=== PATIENT | female | born 1985 | race African-American/Black ===

== ENCOUNTER 2023-04-23 14:12 | Emergency (ER) | payer OTHER ==
--- OUTSIDE RECORDS SUMMARY | 2023-04-23 14:17 | XMS REPORT | Continuity of Care Document ---
:1985 Author Organization [facility] t Address [address] [facility] [address] [place] [address] Care Team Providers Name Role Phone Sharpless Primary Care Physician Josafat Dove Attending Clinician JOSAFAT DOVE Attending Clinician Unavailable Makenzie Brandon Attending Clinician MAKENZIE BRANDON Attending Clinician Unavailable Lauren Medeiros Attending Clinician Izzy Aj Attending Clinician Unavailable Mil Duran Attending Clinician DARIO MILLAN Attending Clinician Unavailable UVALDO FILEDS Attending Clinician Unavailable Edie Moffett Attending Clinician Deidra Javed Attending Clinician NE JENNINGS Admitting Clinician Unavailable Payers Payer Name Policy Type Policy Number Effective Date Expiration Date S ource Problems Condition Condition Condition Status Onset Resolution Last Treating Co mments Source Name Details Category Date Date Treatment Clinician Date Diagnosis Active 2023-01-18 Memoria ISSUE ISSUE 01-17 05:55:00 l Active 08:00: Neptali 01/17/[address] [place] [address] Abdominal Abdominal Diagnosis Active 2023-01-20 Memoria pain in pain in 01-17 03:22:50 l 00:00: Herm theron (finding) (finding) 00 Active 01/17/2023 Diagnosis 01/20/2023 [facility] Bleeding Bleeding Diagnosis Active 2023-01-20 Memoria from from 01-17 03:22:50 l female female 00:00: Neptali genital genital 00 tract tract co-occurre co-occurre nt with nt with (disorder) (disorder) Active 01/17/2023 Diagnosis 01/20/2023 [facility] CHEST PAIN CHEST Diagnosis Active 2021-07-07 Memoria PAIN 07-07 16:17:00 l Active 00:00: [place] 07/07/2021 [facility] ABD PAIN ABD PAIN Diagnosis Active 2020-12-21 Memoria Active 12-08 22:00:00 l 12/08/2020 00:00: Alonzo mcdaniels [place] [address] Neptali,[facility] R10.11 - R10.11 - Diagnosis Active 2020-09-23 Memoria RIGHT RIGHT 4-06 13:52:00 l UPPER UPPER 00:01: [place] QUADRANT QUADRANT 00 PAIN R10.2 PAIN R10.2 Active 09/15/2020 [facility] R10.11 - R10.11 - Diagnosis Active 2020-10-19 Memoria RIGHT RIGHT 4-02 15:16:00 l UPPER UPPER 00:01: [place] QUADRANT QUADRANT 00 PAIN N92.0 PAIN N92.0 Active 09/11/2020 [facility] PTSD/ PTSD/ Diagnosis Active 2019-03-01 Mem JESSICA Ho SONY 08-15 19:41:00 l A A 00:00: [place] [phone] 11 Active 08/15/2018 [facility] HEADACHE/C HEADACHE/ Diagnosis Active 2017-062018-03-26 Memoria HEST PAIN CHEST PAIN 0-15 14:22:00 l Active 00:00: [place] 03/26/2018 00 [facility] Right Right Disease Active [facility] quadrant quadrant 00:00: Medica l abdominal abdominal 00 Cent er pain pain SOB, CHEST SOB, Diagnosis Active 2015-062016-04-28 Memoria PAIN CHEST PAIN 1-17 01:36:00 l Active 00:00: [place] 04/28/2016 00 [facility] LEFT KNEE LEFT KNEE Diagnosis Active 2014-10-15 Memoria PAIN PAIN 5-06 14:56:00 l Active 08:00: Neptali 10/15/2014 00 [facility] Unspecifie Unspecifi Problem 2018-10-13 Memoria d asthma, ed asthma, 13:24:50 l uncomplica uncomplica He kacy ga jada 10/13/2018 [facility] Post-traum Post-trau Problem 2018-10-13 Memoria atic matic 13:24:50 l stress stress Neptali disorder, disorder, unspecifie unspecifie d d 10/13/2018 [facility] Posttrauma Posttraum Problem Resolve 2021-07-09 Memoria tic stress atic d 23:49:19 l disorder stress Neptali (disorder) disorder (disorder) Resolved Problem 07/09/2021 [facility], [facility], [facility] LT KNEE LT KNEE Diagnosis Active 2014-12-15 Memoria PAIN PAIN 10:57:00 l Active Alonzo mcdaniels [facility] History of Past Illness Condition Condition Condition Status Onset Resolution Last Treating Co mments Source Name Details Category Date Date Treatment Clinician Date Diagnosis 2023-01-20 2023-01-20 Memoria finding finding 01-17 03:22:50 03:22:50 l (finding) (finding) 20:26: Herm theron 01/17/2023 00 Diagnosis 01/20/2023 [facility] Antepartum Antepartu Diagnosis 2023-01-20 2023-01-20 Memoria hemorrhage m 01-17 03:22:50 03:22:50 l (disorder) hemorrhage 20:26: He kacy (disorder) 00 01/17/2023 Diagnosis 01/20/2023 [facility] Excessive Excessive Problem 2020-09-22 2020-09-22 Memoria and and 09-20 21:07:09 21:07:09 l frequent frequent 17:00: Alonzo mcdaniels menstruati menstruati 00 on with on with regular regular cycle cycle 09/20/2020 09/22/2020 [facility] Abnormal Abnormal Problem 2020-09-22 2020-09-22 Memoria uterine uterine 09-20 21:07:09 21:07:09 l and and 17:00: Proctor vaginal vaginal 00 bleeding, bleeding, unspecifie unspecifie d d 09/20/2020 09/22/2020 [facility] Unspecifie Unspecifi Problem 2020-09-22 2020-09-22 Memoria d ed 09-20 21:07:09 21:07:09 l abdominal abdominal 17:00: Herm theron pain pain 00 09/20/2020 09/22/2020 [facility] Headache Headache Problem 2017-062018-10-13 2018-10-13 Memoria 03/26/2018 015 13:24:50 13:24:50 l 05:00: Alonzo mcdaniels [address] Discharge Discharge Problem 2015-062016-05-01 2016-05-01 Memoria Diagnosis: Diagnosis: 06-28 04:20:58 04:20:58 l Abdominal Abdominal 06:00: Herm theron pain pain 00 04/28/2016 05/01/2016 [facility] Allergies, Adverse Reactions, Alerts Allergy Allergy Status Severity Reaction(s) Onset Inactive Treating Comm ents Source Name Type Date Date Clinician Tramadol Drug [facility] TRAMADOL Allergy [facility] Shellfis Propensi Active [facility] Containi adverse 00:00: Medical ng reaction 00 Center Products s SHELLFIS Allergy Active [facility] CONTAINI 00:00: Medical NG 00 Center PRODUCTS Shellfis Propensi Active [facility] Containi adverse 00:00: Medical ng reaction 00 Center Products s Shellfis DA Active [facility] [place] 00:00: d 00 [facility] Center No Known No Known Active Memori a Medicati Medicati l on on Neptali Michaels s s Family History Family Member Diagnosis Comments Start Date Stop Date Source Natural father Hypertension [facility] Social History Social Habit Start Date Stop Date Quantity Comments Source History SDOH Alcohol [facility] Frequency History SDOH Alcohol [facility] Std Drinks History SDOH Alcohol [facility] Binge Sexual orientation [facility] History of tobacco Cigar Smoker [facility] History of Social 2021-10-08 2021-10-08 [facility] function 00:00:00 00:00:00 Alcohol intake 2017-07-27 2017-07-27 Current [facility] 00:00:00 00:00:00 non-drinker of Medical Ce nter alcohol (finding) Tobacco Comment 2015-03-27 2015-03-27 2 cigarettes/day [facility] 00:00:00 00:00:00 Alcohol Comment 2015-03-27 2015-03-27 weekend [facility] alth 00:00:00 00:00:00 Cigarettes smoked 2015-03-27 2015-03-27 [facility] current (pack per 00:00:00 00:00:00 day) - Reported Sex Ass[birth year] At [birth year] [facility] 00:00:00 00:00:00 [facility] Smoking Status Start Date Stop Date Source Tobacco smoking status [facility] Current some day smoker 2016-08-16 00:00:00 [facility] Medications Ordered Filled Start Stop Current Ordering Indication Dosage Frequency Signature Comments Components Source Medication Medication Date Date Medication? Clinician (SIG) Name Name Famotidine Yes Notes: Memor ia 20 MG Oral 07-07 (Same as: l Tablet 22:09: Pepcid) Neptali [Pepcid] 00 Maalox Yes Notes: Memoria Advanced - (aluminum l Regular 22:08: hydroxide- Herm theron Strength 00 magnesium SUSP hyd-simeth icone 200-200-20 mg/5ml 30 ml ud AUGUSTINE) Lidocaine Yes Notes: Memori a Viscous 2% - (Same as: l mucous 22:08: Xylocaine) Brenda nn membrane 00 solution Saline No Notes: Memoria Flush 0.9% 6-29 (Same as: l 23:07: BD [place] 00 Posiflush) Sodium Yes 1,000 mL, Memori a Chloride 6-29 1000 l 0.9% 23:07: ml/hr, Proctor (Bolus) IV 00 Infuse Over: 1 hr, Route: IV, 1,000, Drug form: INJ, ONCE, Priority: STAT, Dosing Weight 106.818 kg, Start date: 12/08/20 18:07:00 CDT, Stop date: 12/08/20 18:07:00 CDT, 0 Sodium No 1,000 mL, Memori a Chloride 4-11 1000 l 0.9% 01:27: ml/hr, Proctor (Bolus) IV 00 Infuse Over: 1 hr, Route: IV, 1,000, Drug form: INJ, ONCE, Priority: STAT, Dosing Weight 127.273 kg, Start date: 09/19/20 20:27:00 CDT, Stop date: 09/19/20 20:27:00 CDT, 0 ketOROLAC No 4 days Memor ia 30 mg/mL 4-11 l injectable 01:27: MEDICATION H ermann solution 00 WASTE Product Size: 30 mg Product Wasted: _15__ mg Tylenol 2017-06 No Notes: Max Kalen payam 0-15 acetaminop l 18:00: hen 4000 Neptali 00 mg/day (4 gm/day). (Same as: Tylenol Extra Strength) Ibuprofen 2017-06 No Notes: Memori a 0-15 (Same as: l 18:00: Motrin) Neptali 00 "Do Not Crush" Take with food. VORTIOXETIN Yes 10mg Q.5D Take [address] [facility] 3[facility]10 by mouth 2 [facility] HYDROBROMID 19:18: (two) Medic al E 15 times Center (TRINTELLIX daily . ORAL) RANITIDINE Yes 150mg Take [address] [facility] ORAL 3-10 mg by [facility] 19:18: mouth as Medical 15 needed . Center VORTIOXETIN Yes 10mg Q.5D Take [address] [facility] 3-10 by mouth 2 [facility] HYDROBROMID 19:18: (two) Medic al E 15 times Center (TRINTELLIX daily . ORAL) RANITIDINE 2017-0 Yes 150mg Take [address] [facility] ORAL 3-10 mg by [facility] 19:18: mouth as Medical 15 needed . [place] VORTIOXETIN 2017-0 Yes 10mg Q.5D Take [address] [facility] 3-10 by mouth 2 [facility] HYDROBROMID 19:18: (two) Medic al E 15 times Center (TRINTELLIX daily . ORAL) RANITIDINE 2017-0 Yes 150mg Take [address] [facility]CL ORAL 3-10 mg by [facility] 19:18: mouth as Medical 15 needed . [place] Acetaminoph 2015-06 No 650 mg, Mem oria en 17 Route: PO, l 11:51: Drug form: Proctor 00 TAB, ONCE, Dosing Weight 125, kg, Priority: STAT, Start date: 04/28/16 5:51:00 FLORAL CLERK, Stop date: 04/28/16 5:51:00 FLORAL CLERK Acetaminoph 2015-06 Yes 1 tab, PO, Memoria en 300 MG / 17 Q6H, PRN l Codeine 11:26: Pain, X 3 Brenda nn Phosphate 00 day, # 12 30 MG Oral tab, 0 Tablet Refill(s) [Tylenol with Codeine #3] omeprazole 2015-06 Yes 20 mg = 1 Me moria 20 mg oral 17 cap, PO, l delayed 11:25: Daily, # Alonzo n release 00 30 cap, 0 capsule Refill(s) Sodium 2015-06 No 1,000 mL, Memori a Chloride 17 2,000 l 0.154 09:55: ml/hr, Neptali MEQ/ML 00 Infuse Injectable Over: 30 Solution minutes, Route: IV, 1,000, Drug form: INJ, ONCE, Priority: STAT, Dosing Weight 125 kg, Start date: 04/28/16 3:55:00 FLORAL CLERK, Duration: 1 doses or times, Stop date: 04/28/16 3:55:00 FLORAL CLERK Ketorolac 2015-06 No 4 days Memor ia 17 l 09:06: MEDICATION [place] 00 WASTE Product Size: 30 mg Product Wasted: ___ mg GI cocktail 2015-06 No Notes: Kalen payam -17 G.I. l 07:26: Cocktail = Neptali 00 antacid with simethicon e 22.5 mL - lidocaine viscous 7.5 mL Famotidine 2015-06 No Notes: Memor ia 06-28 (Same as: l 07:26: Pepcid) Can be dilute in 5-10cc NS IVP: Slow IV push over at least 2 minutes. Saline 2015-06 No Notes: Memoria Flush 0.9% 06-28 Same as: l 07:26: BD [place] 00 Posiflush Sterile Ondansetron 2015-06 No Notes: Kalen payam -17 (Same as: l 07:26: Zofran) MEDICATION WASTE Product Size: 4 mg Product Wasted: ___ mg sertraline Yes ESTEBAN 100mg QD Take 1 Carlos is (ZOLOFT) 6-27 (generalize tablet by Health 100 mg 00:00: d anxiety mouth tablet 00 disorder) daily. sertraline Yes ESTEBAN 100mg QD Take 1 Carlos is (ZOLOFT) 6-27 (generalize tablet by Health 100 mg 00:00: d anxiety mouth tablet 00 disorder) daily. sertraline Yes ESTEBAN 100mg QD Take 1 Carlos is (ZOLOFT) 6-27 (generalize tablet by Health 100 mg 00:00: d anxiety mouth tablet 00 disorder) daily. clonazePAM Yes ESTEBAN .5mg Take 1 Harri s (KLONOPIN) 4-07 (generalize tablet by Health 0.5 mg 00:00: d anxiety mouth 2 tablet 00 disorder) times daily as needed for Anxiety. zolpidem Yes ESTEBAN 5mg Take 1 [facility] (AMBIEN) 5 4-07 (generalize tablet by Health mg Tab 00:00: d anxiety mouth at 00 disorder) bedtime nightly. clonazePAM Yes ESTEBAN .5mg Take 1 Harri s (KLONOPIN) 4-07 (generalize tablet by Health 0.5 mg 00:00: d anxiety mouth 2 tablet 00 disorder) times daily as needed for Anxiety. zolpidem 0 Yes ESTEBAN 5mg Take 1 [facility] (AMBIEN) 5 4-07 (generalize tablet by Health mg Tab 00:00: d anxiety mouth at 00 disorder) bedtime nightly. clonazePAM 2016- Yes ESTEBAN .5mg Take 1 Harri s (KLONOPIN) 4-07 (generalize tablet by [facility] 0.5 mg 00:00: d anxiety mouth 2 tablet 00 disorder) times daily as needed for Anxiety. zolpidem 2016 Yes ESTEBAN 5mg Take 1 [facility] (AMBIEN) 5 4-07 (generalize tablet by [facility] mg Tab 00:00: d anxiety mouth at 00 disorder) bedtime nightly. traZODone Yes Medication 50mg Take 1 [facility] (DESYREL) 3-24 refill tablet by [facility] 50 mg 00:00: mouth at tablet 00 bedtime nightly. loratadine Yes Seasonal 10mg QD Take 1 H arris (CLARITIN) 3-24 allergies tablet by [facility] 10 mg 00:00: mouth tablet 00 daily. fluticasone Yes Seasonal 1{spray QD Use 1 [facility] (FLONASE) 3-24 allergies } [place] [facility] 00:00: each mcg/actuati 00 nostril on nasal daily. spray traZODone Yes Medication 50mg Take 1 [facility] (DESYREL) 3-24 refill tablet by [facility] 50 mg 00:00: mouth at tablet 00 bedtime nightly. loratadine Yes Seasonal 10mg QD Take 1 H arris (CLARITIN) 3-24 allergies tablet by [facility] 10 mg 00:00: mouth tablet 00 daily. fluticasone Yes Seasonal 1{spray QD Use 1 [facility] (FLONASE) 3-24 allergies } [place] [facility] 50 00:00: each mcg/actuati 00 nostril on nasal daily. spray traZODone Yes Medication 50mg Take 1 [facility] (DESYREL) 3-24 refill tablet by [facility] 50 mg 00:00: mouth at tablet 00 bedtime nightly. loratadine Yes Seasonal 10mg QD Take 1 H arris (CLARITIN) 3-24 allergies tablet by [facility] 10 mg 00:00: mouth tablet 00 daily. fluticasone Yes Seasonal 1{spray QD Use 1 [facility] (FLONASE) 3-24 allergies } [place] [facility] 50 00:00: each mcg/actuati 00 nostril on nasal daily. spray sertraline 2014-06 Yes ESTEBAN Take 1 Harri s (ZOLOFT) 25 1-23 (generalize tablet by Health mg tablet 00:00: d anxiety mouth 00 disorder) every morning for 1st week and then 2 tablets every morning sertraline 2014-06 Yes ESTEBAN Take 1 Harri s (ZOLOFT) 25 1-23 (generalize tablet by Health mg tablet 00:00: d anxiety mouth 00 disorder) every morning for 1st week and then 2 tablets every morning sertraline 2014-06 Yes ESTEBAN Take 1 Harri s (ZOLOFT) 25 1-23 (generalize tablet by Health mg tablet 00:00: d anxiety mouth 00 disorder) every morning for 1st week and then 2 tablets every morning sertraline 2014-06 Yes ESTEBAN Take 1 Harri s (ZOLOFT) 25 1-23 (generalize tablet by Health mg tablet 00:00: d anxiety mouth 00 disorder) every morning for 1st week and then 2 tablets every morning sertraline 2014-06 Yes ESTEBAN Take 1 Harri s (ZOLOFT) 25 1-23 (generalize tablet by Health mg tablet 00:00: d anxiety mouth 00 disorder) every morning for 1st week and then 2 tablets every morning sertraline 2014-06 Yes ESTEBAN Take 1 Harri s (ZOLOFT) 25 1-23 (generalize tablet by Health mg tablet 00:00: d anxiety mouth 00 disorder) every morning for 1st week and then 2 tablets every morning Yes 1 tab, PO, Mem oria Multivitami 6-21 Daily, 100 l ns with 18:22: Neptali montanez Folic Acid 09 Substituti 0.4 mg oral on tablet Allowed, Kavin e, TAB Vital Signs Vital Name Observation Time Observation Value Comments Source Systolic (mm Hg) 2023-01-17 20:49:00 Kalen Gunderson Diastolic (mm Hg) 2023-01-17 20:49:00 Mem emeraldal Neptali Heart Rate 2023-01-17 20:49:00 [facility] Temperature Oral (F) 2023-01-17 20:49:00 98.7 F [facility] Height 2023-01-17 17:09:00 5 [ft_i] [facility] BMI Calculated 2023-01-17 17:09:00 Anton al Neptali Weight 2023-01-17 17:09:00 [facility] Neptali Height 2021-07-07 20:29:00 180.34 cm [facility] Neptali BMI Calculated 2021-07-07 20:29:00 Memori al Neptali Weight 2021-07-07 20:29:00 Memorial Neptali Systolic (mm Hg) 2021-07-07 20:29:00 Kalen rial Neptali Diastolic (mm Hg) 2021-07-07 20:29:00 Mem orial [place] Heart Rate 2021-07-07 20:29:00 [facility] Neptali Respitory Rate 2021-07-07 20:29:00 Memori al [place] Temperature Oral (F) 2021-07-07 20:29:00 98.2 F [facility] Neptali Height 2020-12-08 22:50:00 180.34 cm [facility] Neptali BMI Calculated 2020-12-08 22:50:00 Memori al Neptali Weight 2020-12-08 22:50:00 Memorial Neptali Systolic (mm Hg) 2020-12-08 22:50:00 Kalen rial Neptali Diastolic (mm Hg) 2020-12-08 22:50:00 Mem orial Neptali Heart Rate 2020-12-08 22:50:00 Memorial Neptali Respitory Rate 2020-12-08 22:50:00 Memori al [place] Temperature Oral (F) 2020-12-08 22:50:00 98.9 F [facility] [place] Temperature Oral (F) 2020-09-20 08:05:00 97.9 F [facility] Neptali Heart Rate 2020-09-20 08:05:00 [facility] [place] Respitory Rate 2020-09-20 08:05:00 Memori al Neptali Systolic (mm Hg) 2020-09-20 08:05:00 Kalen rial Neptali Diastolic (mm Hg) 2020-09-20 08:05:00 Mem orial [place] Height 2020-09-20 01:26:00 180.34 cm Memorial Neptali BMI Calculated 2020-09-20 01:26:00 Memori al Neptali Weight 2020-09-20 01:26:00 Memorial Neptali Systolic (mm Hg) 2020-09-20 01:26:00 Kalen rial Neptali Diastolic (mm Hg) 2020-09-20 01:26:00 Mem orial Neptali Heart Rate 2020-09-20 01:26:00 [facility] [place] Respitory Rate 2020-09-20 01:26:00 Memori al [place] Temperature Oral (F) 2018-03-26 20:00:00 98.6 F [facility] Neptali Heart Rate 2018-03-26 20:00:00 [facility] Neptali Respitory Rate 2018-03-26 20:00:00 Memori al Neptali Systolic (mm Hg) 2018-03-26 20:00:00 Kalen rial Neptali Diastolic (mm Hg) 2018-03-26 20:00:00 Mem orial Neptali BMI Calculated 2018-03-26 17:04:00 Memori al Neptali Weight 2018-03-26 17:04:00 Memorial Neptali Height 2018-03-26 17:04:00 180.34 cm [facility] [place] Temperature Oral (F) 2018-03-26 17:04:00 98.8 F [facility] [place] Heart Rate 2018-03-26 17:04:00 Memorial Neptali Systolic (mm Hg) 2018-03-26 17:04:00 Kalen rial [place] Diastolic (mm Hg) 2018-03-26 17:04:00 Mem orial [place] Respitory Rate 2018-03-26 17:04:00 Memori al [place] Systolic (mm Hg) 2016-04-28 11:47:00 Kalen rial [place] Diastolic (mm Hg) 2016-04-28 11:47:00 Mem orial Neptali Heart Rate 2016-04-28 11:47:00 [facility] [place] Respitory Rate 2016-04-28 11:47:00 Memori al Neptali Temperature Oral (F) 2016-04-28 11:47:00 98.0 F [facility] Neptali Systolic (mm Hg) 2016-04-28 10:17:00 Kalen rial [place] Diastolic (mm Hg) 2016-04-28 10:17:00 Mem orial Neptali Heart Rate 2016-04-28 10:17:00 [facility] [place] Respitory Rate 2016-04-28 10:17:00 Memori al Neptali Heart Rate 2016-04-28 08:00:00 Memorial Neptali Temperature Oral (F) 2016-04-28 08:00:00 97.9 F [facility] [place] Weight 2016-04-28 06:38:00 [facility] [place] Height 2016-04-28 06:38:00 180.34 cm [facility] Neptali BMI Calculated 2016-04-28 06:38:00 Memori al Neptali Respitory Rate 2016-04-28 06:38:00 Memori al [place] Temperature Oral (F) 2016-04-28 06:38:00 98 F [facility] [place] Systolic (mm Hg) 2016-04-28 06:38:00 Kalen rial [place] Diastolic (mm Hg) 2016-04-28 06:38:00 Mem orial [place] Procedures This patient has no known procedures. Plan of Care Planned Activity Planned Date Details Comments Source Future Scheduled Test 2023-02-10 00:00:00 IMM Influenza [facility] Seasonal (>/= 19 yrs) [code = IMM Influenza Seasonal (>/= 19 yrs)] Future Scheduled Test 2022-03-12 00:00:00 IMM Influenza [facility] Seasonal (>/= 19 yrs) [code = IMM Influenza Seasonal (>/= 19 yrs)] Future Scheduled Test 2022-03-12 00:00:00 IMM Influenza [facility] Seasonal (>/= 19 yrs) [code = IMM Influenza Seasonal (>/= 19 yrs)] Future Scheduled Test 2019-08-11 00:00:00 Screening for [facility] malignant neoplasm of cervix (procedure) [code = 564897870] Future Scheduled Test 2019-08-11 00:00:00 Screening for [facility] malignant neoplasm of cervix (procedure) [code = 348285060] Future Scheduled Test 2019-08-11 00:00:00 Screening for [facility] malignant neoplasm of cervix (procedure) [code = 253818401] Future Scheduled Test 2013 00:00:00 Screening for [facility] malignant neoplasm of cervix (procedure) [code = 713240367] Future Scheduled Test 2013 00:00:00 Screening for [facility] malignant neoplasm of cervix (procedure) [code = 239193103] Future Scheduled Test 2013 00:00:00 Screening for [facility] malignant neoplasm of cervix (procedure) [code = 853570275] Future Scheduled Test 1983 00:00:00 COVID-19 Vaccine (#1) [facility] [code = COVID-19 Vaccine (#1)] Future Scheduled Test 1983 00:00:00 COVID-19 Vaccine (#1) [facility] [code = COVID-19 Vaccine (#1)] Future Scheduled Test 1983 00:00:00 COVID-19 Vaccine (#1) [facility] [code = COVID-19 Vaccine (#1)] Future Scheduled Test 1983 00:00:00 Fluoride Varnish [facility] [code = Fluoride Varnish] Future Scheduled Test 1983 00:00:00 Fluoride Varnish [facility] [code = Fluoride Varnish] Encounters Start End Encounter Admission Attending Care Care Encounter Source Date/Time Date/Time Type Type Clinicians Facility Department ID 2023-01-17 2023-01-[address] [facility] [id number] Memoria 17:01:43 20:50:[address] [place] [address] 2023-01-17 2023-01-17 Outpatient LUZ MARIA Dove [facility] [id number] 12:01:43 15:50:00 Mac 2023-01-17 2023-01-17 Emergency E DERRELL JARED [facility] [id number] [facility] 12:01:00 15:50:00 SABHALEY 2021-07-07 2021-07-07 Emergency [facility] [id number] Memoria 20:24:37 22:48:00 akil Gunderson 05 [facility] 2021-07-07 2021-07-07 Outpatient ANGELICA Brandon [facility] [id number] 14:24:37 16:48:00 Makenzie Suazo 2021-07-07 2021-07-[address] [facility] [id number] [place] 14:24:00 16:48:00 MAKENZIE 2020-12-08 2020-12-09 Emergency [facility] [id number] Memoria 22:48:53 07:17:00 r Neptali The 04 [facility] 2020-12-08 2020-12-09 Outpatient DEBORAH Medeiros [facility] [id number] 17:48:53 02:17:00 Lauren Odonnell 2020-09-23 2020-09-23 Outpatient PRIV PRIV [id number] [facility] 04:59:00 04:59:00 [id number] Medica l 2020-09-20 2020-09-20 Emergency nullFlavo [facility] [id number] Memoria 01:12:18 07:30:00 r Neptali 03 l [facility] 2020-09-19 2020-09-20 Outpatient Derrell, MHPL PL [id number] 20:12:18 02:30:00 Sabhaley 03 2020-09-16 2020-09-17 Outpt Diag nullFlavo [facility] [id number] Memoria 21:50:00 04:59:00 Services r [facility] 03 l [facility] 2020-09-16 2020-09-16 Outpatient Duenes, MH31 [id number] 16:50:00 23:59:00 Izzy Louise 2018-03-26 2018-03-26 Emergency nullFlavo [facility] [id number] Memoria 17:01:00 20:35:00 r Neptali 01 [facility] 2018-03-26 2018-03-26 Outpatient Mil Duran [facility] [id number] 12:01:00 15:35:00 T 2016-04-28 2016-04-28 Emergency nullFlavo [facility] [id number] Memoria 06:25:00 11:57:00 r [place] 00 [facility] 2016-04-28 2016-04-28 Outpatient Betina, MHGHR [facility] [id number] 00:25:00 05:57:00 Edie Li 2014-12-15 2015-01-14 OP Therapy nullFlavo [facility] [id number] Memoria 15:55:00 04:59:00 Patients [facility] 2014-12-15 2015-01-13 Outpatient Bedgood, [id number] 10:55:00 23:59:00 Deidra [id number] 2014-10-15 2014-11-14 OP Therapy nullFlavo [facility] [id number] Memoria 19:00:00 04:59:00 Patients [facility] 2014-10-15 2014-11-13 Outpatient [place], [id number]. [id number]. [id number] 14:00:00 23:59:00 De[place] [id number]. [id number] 5.0.101 01 Results Test Description Test Time Test Comments Results Result Comments Source RADRPT 2023-01-17 19:25:39 Test Item Value Reference Range Interpretation Comme nts RADRPT (test code = RADRPT) PROCEDURE INFORMATION: Exam: US [place]reg[place] cy First Trimester, Transabdominal and US , Transvaginal Exam date and time: 01/17/2023 1:02 PM Age: 37 years old Clinical indication: Antepartum complications; Bleeding; Additional info: Vaginal bleeding/abdominal pain and vaginal bleeding TECHNIQUE: Imaging protocol: Real-time transabdominal obstetrical ultrasound of the maternal pelvis and a first trimester , less than 14 weeks 0 days, with image documentation. Transvaginal imaging was used for better evaluation of the fetus, adnexa, and/or cervix. COMPARISON: PELVIS TRANSVAGINAL US 09/16/2020 5:01 PM Findings: GESTATION: Gestation: Intrauterine gestational sac endometrial segment. The the pole is seen . Embryonic/ heart rate: 85 BPM. Extra-embryonic membranes/Placenta: No subchorionic bleed. Amniotic fluid: Amniotic and extra-amniotic fluid are normal for gestational age. BIOMETRY: Gestational age (AUA): Estimated gestational age is 5 weeks and 5 days, by CRL measurments. MATERNAL: FINDINGS: Uterus: Anteverted. The uterus measures 8.1 x 4.5 x 5 6 cm. Right ovary/adnexa: Not seen and likely obscured by bowel gas. Left ovary/adnexa: Measures 3.3 x 1.5 x 2.0 cm. Normal ovarian blood flow. No mass. Intraperitoneal space: There is trace fluid in the cul-de-sac, likely physiologic. Urinary bladder: Unremarkble. Notes: If there is further concern recommend serial hCG and short interval followup, IMPRESSION: 1. Single live intrauterine at the lower uterine segment. 2. EGA is 5 weeks and 5 days. Nitza Soares MD On 01/17/2023 14:24:09; [id number] [facility]VcqcahaUYDYRCEQSZ6157-25-82 17:17:00 Test Item Value Reference Range Interpretation Comments Basophils # (test code = Basophils #) 0.1 <=0.2 [facility]IbotjfvWTADECEDWG8644-32-16 17:17:00 Test Item Value Reference Range Interpretation Comments Microcyte (test code = 1+ *ABN*(01/17/23 Microcyte) 12:17 PM) [facility] [id number] 17:17:00 Test Item Value Reference Range Interpretation Comments ABO/Rh (test code = ABO/Rh) A POS [facility]ElhhzxlROUVJIQIE3640-09-38 17:17:00 Test Item Value Reference Range Interpretation Comments Glucose Lvl (test code = Glucose Lvl) 100 70-99 [facility] HospitalBxwhemqPSVZCNQRV9100-98-03 17:17:00 Test Item Value Reference Range Interpretation Comments BUN (test code = BUN) 6 7-22 [facility] HospitalMrkzztkIKTURCOOZ1568-68-95 17:17:00 Test Item Value Reference Range Interpretation Comments Creatinine Lvl (test code = Creatinine 0.84 0.50-1.40 Lvl) [facility] HospitalBrukqscPQHDSVJXR4987-22-23 17:17:00 Test Item Value Reference Range Interpretation Comments Sodium Lvl (test code = Sodium Lvl) 136 135-145 [facility] HospitalOqaplprICBYPOFSJ3607-67-06 17:17:00 Test Item Value Reference Range Interpretation Comments Potassium Lvl (test code = Potassium 4.3 3.5-5.1 Lvl) [facility] HospitalLoqqktbDQLEECIAF3862-98-11 17:17:00 Test Item Value Reference Range Interpretation Comments Chloride Lvl (test code = Chloride Lvl) 112 95-109 [facility] HospitalSkltoifFSXTDIZFH3327-28-27 17:17:00 Test Item Value Reference Range Interpretation Comments CO2 (test code = CO2) 24 24-32 [facility] HospitalKoftvbjCLVLFNLIC8706-30-26 17:17:00 Test Item Value Reference Range Interpretation Comments Calcium Lvl (test code = Calcium Lvl) 9.2 8.5-10.5 [facility] HospitalUfguyjpDLHRCAORL4582-92-64 17:17:00 Test Item Value Reference Range Interpretation Comments Total Protein (test code = Total 8.0 6.4-8.4 Protein) [facility] HospitalUzvpiofITRPYTHQG8668-71-26 17:17:00 Test Item Value Reference Range Interpretation Comments Albumin Lvl (test code = Albumin Lvl) 3.9 3.5-5.0 [facility] HospitalSbuakjdMQSDYRLFK1538-92-98 17:17:00 Test Item Value Reference Range Interpretation Comments ALT (test code = ALT) 18 <=65 [facility] HospitalBkmixujDOOABQPJY3633-41-37 17:17:00 Test Item Value Reference Range Interpretation Comments AST (test code = AST) 10 <=37 [facility] HospitalYselidwYIWFICNYO0433-59-39 17:17:00 Test Item Value Reference Range Interpretation Comments Alk Phos (test code = Alk Phos) 57 39-136 [facility] HospitalXsaqkgtNQWXUPVLD9271-62-25 17:17:00 Test Item Value Reference Range Interpretation Comments Bili Total (test code = Bili Total) 0.6 0.2-1.3 [facility] HospitalQrzjqvjCTTNMXKUZ7548-83-70 17:17:00 Test Item Value Reference Range Interpretation Comments AGAP (test code = AGAP) 4.3 10.0-20.0 [facility] HospitalYwbkhyiHKFSGKDDU7752-71-02 17:17:00 Test Item Value Reference Range Interpretation Comments B/C Ratio (test code = B/C Ratio) 7 1 6-25 [facility] HospitalJewbdrgALGBDILRD5583-93-52 17:17:00 Test Item Value Reference Range Interpretation Comments Globulin (test code = Globulin) 4.1 2.7-4.2 [facility] HospitalBlzgpnqNPYJRVRQE2148-94-76 17:17:00 Test Item Value Reference Range Interpretation Comments A/G Ratio (test code = A/G Ratio) 1.0 1 0.7-1.6 [facility] HospitalMohavkcCRDPJLEJY3293-93-02 17:17:00 Test Item Value Reference Range Interpretation Comments eGFR (test code = eGFR) 90 [facility] HospitalNteowswCNJOYNDQQ4490-62-37 17:17:00 Test Item Value Reference Range Interpretation Comments hCG Tot (test code = hCG Tot) 956 [facility] HospitalHhdtasaUWVXRYKFOT8698-36-29 17:17:00 Test Item Value Reference Range Interpretation Comments WBC (test code = WBC) 6.6 3.7-10.4 [facility] HospitalIpjyhldKDLHMVEGKC6970-83-05 17:17:00 Test Item Value Reference Range Interpretation Comments RBC (test code = RBC) 4.59 4.20-5.40 [facility] HospitalTkvnrlrKEYBZJRGPJ4579-08-48 17:17:00 Test Item Value Reference Range Interpretation Comments Hgb (test code = Hgb) 10.4 12.0-16.0 [place] [address]-08-08 17:17:00 Test Item Value Reference Range Interpretation Comments Hct (test code = Hct) 34.4 36.0-48.0 [facility] HospitalIpcpygrDZJVFGVSFI8758-66-66 17:17:00 Test Item Value Reference Range Interpretation Comments MCV (test code = MCV) 74.8 80.0-98.0 [place] 898863-08-08 17:17:00 Test Item Value Reference Range Interpretation Comments MCH (test code = MCH) 22.7 pg 27.0-31.0 [place] 898863-08-08 17:17:00 Test Item Value Reference Range Interpretation Comments MCHC (test code = MCHC) 30.3 32.0-36.0 [facility] HospitalKgsbwqhOPQIGEFOAX7813-20-65 17:17:00 Test Item Value Reference Range Interpretation Comments RDW (test code = RDW) 19.6 11.5-14.5 [place] 898863-08-08 17:17:00 Test Item Value Reference Range Interpretation Comments Platelet (test code = Platelet) 275 133-450 [facility] HospitalFywmrsnCBMTGGIBAX5255-22-03 17:17:00 Test Item Value Reference Range Interpretation Comments MPV (test code = MPV) 7.4 7.4-10.4 [facility] HospitalEeilybuTXFJZXFLNJ0816-46-94 17:17:00 Test Item Value Reference Range Interpretation Comments Segs (test code = Segs) 72.5 45.0-75.0 [facility] HospitalBpezqxdKFVPVNKEUN0376-74-95 17:17:00 Test Item Value Reference Range Interpretation Comments Lymphocytes (test code = Lymphocytes) 18.9 20.0-40.0 [place] 898863-08-08 17:17:00 Test Item Value Reference Range Interpretation Comments Monocytes (test code = Monocytes) 6.6 2.0-12.0 [place] [address]-08-08 17:17:00 Test Item Value Reference Range Interpretation Comments Eosinophils (test code = Eosinophils) 1.1 <=4.0 [place] [address]-08-08 17:17:00 Test Item Value Reference Range Interpretation Comments Basophils (test code = Basophils) 0.9 <=1.0 [place] [address]-08-08 17:17:00 Test Item Value Reference Range Interpretation Comments Neutrophils # (test code = Neutrophils 4.8 1.5-8.1 #) [facility] ClareUfclhmrVVCOSOQDEC8232-81-13 17:17:00 Test Item Value Reference Range Interpretation Comments Lymphocytes # (test code = Lymphocytes 1.2 1.0-5.5 #) [facility] ClareHenlplmLDYTLVJNMJ5499-73-49 17:17:00 Test Item Value Reference Range Interpretation Comments Monocytes # (test code = Monocytes #) 0.4 <=0.8 [place] 898863-08-08 17:17:00 Test Item Value Reference Range Interpretation Comments Eosinophils # (test code = Eosinophils 0.1 <=0.5 #) [facility]USOGRQ4186-70-[facility] 20:56:00 Test Item Value Reference Range Interpretation Comments HS Troponin I Baseline (test code = HS no gt Troponin I Baseline) [facility]2022-01-26 20:56:00 Test Item Value Reference Range Interpretation Comments Glucose Lvl (test code = Glucose Lvl) 107 70-99 [facility]2022-01-26 20:56:00 Test Item Value Reference Range Interpretation Comments BUN (test code = BUN) 9 7-22 [facility]2022-01-26 20:56:00 Test Item Value Reference Range Interpretation Comments Creatinine Lvl (test code = Creatinine 0.80 0.50-1.40 Lvl) [facility]2022-01-26 20:56:00 Test Item Value Reference Range Interpretation Comments Sodium Lvl (test code = Sodium Lvl) 141 135-145 [facility]2022-01-26 20:56:00 Test Item Value Reference Range Interpretation Comments Potassium Lvl (test code = Potassium 3.8 3.5-5.1 Lvl) [facility]2022-01-26 20:56:00 Test Item Value Reference Range Interpretation Comments Chloride Lvl (test code = Chloride Lvl) 112 95-109 [facility]2022-01-26 20:56:00 Test Item Value Reference Range Interpretation Comments CO2 (test code = CO2) 25 24-32 [facility]2022-01-26 20:56:00 Test Item Value Reference Range Interpretation Comments Calcium Lvl (test code = Calcium Lvl) 9.4 8.5-10.5 [place] 468472-01-26 20:56:00 Test Item Value Reference Range Interpretation Comments Total Protein (test code = Total 8.1 6.4-8.4 Protein) [place] 468472-01-26 20:56:00 Test Item Value Reference Range Interpretation Comments Albumin Lvl (test code = Albumin Lvl) 3.9 3.5-5.0 [place] 468472-01-26 20:56:00 Test Item Value Reference Range Interpretation Comments ALT (test code = ALT) 16 <=65 [place] 468472-01-26 20:56:00 Test Item Value Reference Range Interpretation Comments AST (test code = AST) 10 <=37 [place] 468472-01-26 20:56:00 Test Item Value Reference Range Interpretation Comments Alk Phos (test code = Alk Phos) 61 39-136 [place] 468472-01-26 20:56:00 Test Item Value Reference Range Interpretation Comments Bili Total (test code = Bili Total) 0.4 0.2-1.3 [place] 468472-01-26 20:56:00 Test Item Value Reference Range Interpretation Comments AGAP (test code = AGAP) 7.8 10.0-20.0 [place] 468472-01-26 20:56:00 Test Item Value Reference Range Interpretation Comments B/C Ratio (test code = B/C Ratio) 11 1 6-25 [place] 468472-01-26 20:56:00 Test Item Value Reference Range Interpretation Comments Globulin (test code = Globulin) 4.2 2.7-4.2 [place] 468472-01-26 20:56:00 Test Item Value Reference Range Interpretation Comments A/G Ratio (test code = A/G Ratio) 0.9 1 0.7-1.6 [place] 468472-01-26 20:56:00 Test Item Value Reference Range Interpretation Comments eGFR (test code = eGFR) 95 [place] 468472-01-26 20:56:00 Test Item Value Reference Range Interpretation Comments Lipase Lvl (test code = Lipase Lvl) 64 73-393 [facility] HospitalWkkojeyGUUIKXJMKEFAF4762-18-05 20:56:00 Test Item Value Reference Range Interpretation Comments S Preg (test code = S Negative *NA*(07/07/21 Preg) 2:56 PM) [place] 898862-01-26 20:56:00 Test Item Value Reference Range Interpretation Comments WBC (test code = WBC) 3.9 3.7-10.4 [place] 898862-01-26 20:56:00 Test Item Value Reference Range Interpretation Comments RBC (test code = RBC) 4.37 4.20-5.40 [place] 898862-01-26 20:56:00 Test Item Value Reference Range Interpretation Comments Hgb (test code = Hgb) 10.4 12.0-16.0 [place] 898862-01-26 20:56:00 Test Item Value Reference Range Interpretation Comments Hct (test code = Hct) 32.8 36.0-48.0 [place] 898862-01-26 20:56:00 Test Item Value Reference Range Interpretation Comments MCV (test code = MCV) 75.1 80.0-98.0 [place] 898862-01-26 20:56:00 Test Item Value Reference Range Interpretation Comments MCH (test code = MCH) 23.7 pg 27.0-31.0 [facility] HospitalCrmnfibTCUNNJOIJO1608-55-46 20:56:00 Test Item Value Reference Range Interpretation Comments MCHC (test code = MCHC) 31.5 32.0-36.0 [place] 898862-01-26 20:56:00 Test Item Value Reference Range Interpretation Comments RDW (test code = RDW) 16.2 11.5-14.5 [place] 898862-01-26 20:56:00 Test Item Value Reference Range Interpretation Comments Platelet (test code = Platelet) 251 133-450 [facility] HospitalYhexumgLFKTDEFZFG3174-01-17 20:56:00 Test Item Value Reference Range Interpretation Comments MPV (test code = MPV) 8.6 7.4-10.4 [place] 898862-01-26 20:56:00 Test Item Value Reference Range Interpretation Comments PT (test code = PT) 13.1 s 12.0-14.7 [place] 898862-01-26 20:56:00 Test Item Value Reference Range Interpretation Comments INR (test code = INR) 1.00 1 0.85-1.17 [facility] HospitalBmtlqgxLUJYDLOMWQ0186-24-07 20:56:00 Test Item Value Reference Range Interpretation Comments PTT (test code = PTT) 28.6 s 22.9-35.8 [facility] HospitalJwkdagoDUAGCAWKXG8791-21-81 20:56:00 Test Item Value Reference Range Interpretation Comments Segs (test code = Segs) 52.3 45.0-75.0 [facility] HospitalTuyieduDTTHXAPWGP8713-91-26 20:56:00 Test Item Value Reference Range Interpretation Comments Lymphocytes (test code = Lymphocytes) 38.2 20.0-40.0 [facility] HospitalYbfhikfCEPOISDFKX1972-67-05 20:56:00 Test Item Value Reference Range Interpretation Comments Monocytes (test code = Monocytes) 7.2 2.0-12.0 [facility] HospitalDzbimdzHRVSDNTCSI1771-88-28 20:56:00 Test Item Value Reference Range Interpretation Comments Eosinophils (test code = Eosinophils) 1.4 <=4.0 [facility] HospitalBffkycvZXMWGDVWTX2739-54-38 20:56:00 Test Item Value Reference Range Interpretation Comments Basophils (test code = Basophils) 0.9 <=1.0 [facility] HospitalJjqgnrmTQEXXPUWKJ4272-33-95 20:56:00 Test Item Value Reference Range Interpretation Comments Neutrophils # (test code = Neutrophils 2.0 1.5-8.1 #) [facility] HospitalErjscazOVETUQIWBJ3741-00-83 20:56:00 Test Item Value Reference Range Interpretation Comments Lymphocytes # (test code = Lymphocytes 1.5 1.0-5.5 #) [facility] HospitalFtjydwxETUBPYTFLE2832-87-13 20:56:00 Test Item Value Reference Range Interpretation Comments Monocytes # (test code = Monocytes #) 0.3 <=0.8 [place] 898862-01-26 20:56:00 Test Item Value Reference Range Interpretation Comments Eosinophils # (test code = Eosinophils 0.1 <=0.5 #) [facility] HospitalLznndraEPWATCMLMB5808-87-25 20:56:00 Test Item Value Reference Range Interpretation Comments Microcyte (test code = 1+ *ABN*(07/07/21 Microcyte) 2:56 PM) [facility] ONZVZNJ3163-64-62 04:10:00 Test Item Value Reference Range Interpretation Comments ABO/Rh (test code = ABO/Rh) A POS [facility] HSAAPDF6564-08-47 04:10:00 Test Item Value Reference Range Interpretation Comments Antibody Scrn (test Negative (09/19/20 code = Antibody Scrn) 11:10 PM) [facility]Touch[facility] FTTPZ5437-98-31 04:10:00 Test Item Value Reference Range Interpretation Comments Glucose Lvl (test code = Glucose Lvl) 90 70-99 [facility] RKTHQ7310-11-07 04:10:00 Test Item Value Reference Range Interpretation Comments BUN (test code = BUN) 9 7-22 [facility] [id number] 04:10:00 Test Item Value Reference Range Interpretation Comments Creatinine Lvl (test code = Creatinine 0.82 0.50-1.40 Lvl) [facility] TJLMK0198-26-77 04:10:00 Test Item Value Reference Range Interpretation Comments Sodium Lvl (test code = Sodium Lvl) 140 135-145 [facility] XYYKX6252-61-53 04:10:00 Test Item Value Reference Range Interpretation Comments Potassium Lvl (test code = Potassium 4.3 3.5-5.1 Lvl) [facility] [id number] 04:10:00 Test Item Value Reference Range Interpretation Comments Chloride Lvl (test code = Chloride Lvl) 111 95-109 [facility] [id number] 04:10:00 Test Item Value Reference Range Interpretation Comments CO2 (test code = CO2) 29 24-32 [facility] EQOUK9522-79-59 04:10:00 Test Item Value Reference Range Interpretation Comments Calcium Lvl (test code = Calcium Lvl) 8.1 8.5-10.5 [facility] [id number] 04:10:00 Test Item Value Reference Range Interpretation Comments Total Protein (test code = Total 7.3 6.4-8.4 Protein) [facility] [id number] 04:10:00 Test Item Value Reference Range Interpretation Comments Albumin Lvl (test code = Albumin Lvl) 3.6 3.5-5.0 [facility]Touch[facility] IFLEF3767-00-10 04:10:00 Test Item Value Reference Range Interpretation Comments ALT (test code = ALT) 21 <=65 [facility]Touch[facility] [id number] 04:10:00 Test Item Value Reference Range Interpretation Comments AST (test code = AST) 16 <=37 [facility]2021-04-11 04:10:00 Test Item Value Reference Range Interpretation Comments Alk Phos (test code = Alk Phos) 63 39-136 [facility]2021-04-11 04:10:00 Test Item Value Reference Range Interpretation Comments Bili Total (test code = Bili Total) 0.3 0.2-1.3 [facility]2021-04-11 04:10:00 Test Item Value Reference Range Interpretation Comments AGAP (test code = AGAP) 4.3 10.0-20.0 [facility]2021-04-11 04:10:00 Test Item Value Reference Range Interpretation Comments B/C Ratio (test code = B/C Ratio) 11 1 6-25 [place] 468471-04-11 04:10:00 Test Item Value Reference Range Interpretation Comments Globulin (test code = Globulin) 3.7 2.7-4.2 [facility]2021-04-11 04:10:00 Test Item Value Reference Range Interpretation Comments A/G Ratio (test code = A/G Ratio) 1.0 1 0.7-1.6 [place] 468471-04-11 04:10:00 Test Item Value Reference Range Interpretation Comments eGFR (test code = eGFR) 91 [facility] HospitalXwsrqleGVBXLSEFXT6503-62-27 04:10:00 Test Item Value Reference Range Interpretation Comments WBC (test code = WBC) 4.7 3.7-10.4 [facility] HospitalVxqlnkhWBBUIBKRIP4905-55-13 04:10:00 Test Item Value Reference Range Interpretation Comments RBC (test code = RBC) 3.98 4.20-5.40 [facility] HospitalJuperpoSNGRDLPFNR5365-16-00 04:10:00 Test Item Value Reference Range Interpretation Comments Hgb (test code = Hgb) 10.7 12.0-16.0 [place] 898861-04-11 04:10:00 Test Item Value Reference Range Interpretation Comments Hct (test code = Hct) 33.2 36.0-48.0 [place] 898861-04-11 04:10:00 Test Item Value Reference Range Interpretation Comments MCV (test code = MCV) 83.3 80.0-98.0 [facility] HospitalBqxrxuxKFQYMMNMPW5276-20-10 04:10:00 Test Item Value Reference Range Interpretation Comments MCH (test code = MCH) 26.8 pg 27.0-31.0 [facility] HospitalCzvkyncYOBNHULLJY3296-05-02 04:10:00 Test Item Value Reference Range Interpretation Comments MCHC (test code = MCHC) 32.1 32.0-36.0 [facility] HospitalEwaccruGSPYHRHYGX8334-12-86 04:10:00 Test Item Value Reference Range Interpretation Comments RDW (test code = RDW) 15.2 11.5-14.5 [facility] HospitalOcomcinKOFSNBNMCE3852-91-39 04:10:00 Test Item Value Reference Range Interpretation Comments Platelet (test code = Platelet) 213 133-450 [facility] HospitalRdediruTOCFCJBAOB6813-37-84 04:10:00 Test Item Value Reference Range Interpretation Comments MPV (test code = MPV) 9.0 7.4-10.4 [facility] HospitalBghmjjjQQUXHTPJGM3397-33-13 04:10:00 Test Item Value Reference Range Interpretation Comments Segs (test code = Segs) 38.9 45.0-75.0 [facility] HospitalVfksjccBRDTNWKTZG5089-48-62 04:10:00 Test Item Value Reference Range Interpretation Comments Lymphocytes (test code = Lymphocytes) 48.4 20.0-40.0 [facility] HospitalXodomahXILAHJNWYV1031-45-19 04:10:00 Test Item Value Reference Range Interpretation Comments Monocytes (test code = Monocytes) 6.8 2.0-12.0 [facility] HospitalNfaloapSXDKRYDWAV7076-15-08 04:10:00 Test Item Value Reference Range Interpretation Comments Eosinophils (test code = Eosinophils) 4.9 <=4.0 [facility] HospitalUjrqshmHTNKYBHWEC8854-22-80 04:10:00 Test Item Value Reference Range Interpretation Comments Basophils (test code = Basophils) 1.0 <=1.0 [facility] HospitalEiyzfgsJITVDJDQRD7476-85-48 04:10:00 Test Item Value Reference Range Interpretation Comments Neutrophils # (test code = Neutrophils 1.8 1.5-8.1 #) [facility] HospitalJhyxizaUTYETCTWNK2940-38-73 04:10:00 Test Item Value Reference Range Interpretation Comments Lymphocytes # (test code = Lymphocytes 2.3 1.0-5.5 #) [facility] HospitalVjuiezxBFWVTCHDJD3580-90-88 04:10:00 Test Item Value Reference Range Interpretation Comments Monocytes # (test code = Monocytes #) 0.3 <=0.8 [facility] LqunmeaPNURRJZXET5077-22-15 04:10:00 Test Item Value Reference Range Interpretation Comments Eosinophils # (test code = Eosinophils 0.2 <=0.5 #) [facility] AND [id number] 03:59:00 Test Item Value Reference Range Interpretation Comments UA Color (test code = Yellow *NA*(09/19/20 UA Color) 10:59 PM) [facility] AND [id number] 03:59:00 Test Item Value Reference Range Interpretation Comments UA Turbidity (test code Marked *ABN*(09/19/20 = UA Turbidity) 10:59 PM) [facility] AND [id number] 03:59:00 Test Item Value Reference Range Interpretation Comments UA Spec Grav (test code = UA Spec 1.031 1 Grav) [facility] AND [id number] 03:59:00 Test Item Value Reference Range Interpretation Comments UA pH (test code = UA pH) 5.0 1 5.0-8.0 [facility] AND [id number] 03:59:00 Test Item Value Reference Range Interpretation Comments UA Protein (test code = UA Protein) 30 mg/dL [facility] AND [id number] 03:59:00 Test Item Value Reference Range Interpretation Comments UA Glucose (test code = UA Negative mg/dL Glucose) [facility] AND [id number] 03:59:00 Test Item Value Reference Range Interpretation Comments UA Ketones (test code = UA Negative mg/dL Ketones) [facility] [id number] 03:59:00 Test Item Value Reference Range Interpretation Comments UA Bili (test code = Negative *NA*(09/19/20 UA Bili) 10:59 PM) [facility] [id number] 03:59:00 Test Item Value Reference Range Interpretation Comments UA Blood (test code = Large *ABN*(09/19/20 UA Blood) 10:59 PM) [facility] AND [id number] 03:59:00 Test Item Value Reference Range Interpretation Comments UA Urobilinogen (test code = UA 4.0 0.1-1.0 Urobilinogen) [facility] [id number] 03:59:00 Test Item Value Reference Range Interpretation Comments UA Nitrite (test code Negative (09/19/20 10:59 = [facility] Nitrite) PM) [facility] [id number] 03:59:00 Test Item Value Reference Range Interpretation Comments UA Leuk Est (test Negative (09/19/20 10:59 code = UA Leuk Est) PM) [facility] [id number] 03:59:00 Test Item Value Reference Range Interpretation Comments UA Sq Epi (test code = UA Sq Occasional /LPF Epi) [facility] [id number] 03:59:00 Test Item Value Reference Range Interpretation Comments UA WBC (test code = UA WBC) 3 <=5 [facility] [id number] 03:59:00 Test Item Value Reference Range Interpretation Comments UA RBC (test code = UA RBC) no gt <=2 [facility] [id number] 03:59:00 Test Item Value Reference Range Interpretation Comments UA Bacteria (test code = UA Moderate /HPF Bacteria) [facility] [id number] 03:59:00 Test Item Value Reference Range Interpretation Comments UA Mucus (test code = UA Mucus) Few /LPF [facility] [id number] 03:59:00 Test Item Value Reference Range Interpretation Comments U Preg (test code = U Negative (09/19/20 10:59 Preg) PM) [facility] [id number] 18:45:00 Test Item Value Reference Range Interpretation Comments Troponin-I (test code = Troponin-I) no gt <=0.40 [facility] [employer] [id number] 18:45:00 Test Item Value Reference Range Interpretation Comments eGFR (test code = eGFR) 95 [facility] [employer] [id number] 18:45:00 Test Item Value Reference Range Interpretation Comments Calcium Lvl (test code = Calcium Lvl) 8.7 8.5-10.5 [facility] [id number] 18:45:00 Test Item Value Reference Range Interpretation Comments Chloride Lvl (test code = Chloride Lvl) 105 95-109 [facility] [employer] [id number] 18:45:00 Test Item Value Reference Range Interpretation Comments CO2 (test code = CO2) 26 24-32 [place] [id number] 18:45:00 Test Item Value Reference Range Interpretation Comments Creatinine Lvl (test code = Creatinine 0.91 0.50-1.40 Lvl) [facility]2018-10-15 18:45:00 Test Item Value Reference Range Interpretation Comments Potassium Lvl (test code = Potassium 4.2 3.5-5.1 Lvl) [facility]2018-10-15 18:45:00 Test Item Value Reference Range Interpretation Comments Sodium Lvl (test code = Sodium Lvl) 137 135-145 [place] [id number] 18:45:00 Test Item Value Reference Range Interpretation Comments Glucose Lvl (test code = Glucose Lvl) 94 70-99 [facility]2018-10-15 18:45:00 Test Item Value Reference Range Interpretation Comments BUN (test code = BUN) 11 7-22 [facility]2018-10-15 18:45:00 Test Item Value Reference Range Interpretation Comments AGAP (test code = AGAP) 10.2 10.0-20.0 [place] [id number] 18:45:00 Test Item Value Reference Range Interpretation Comments Lymphocytes # (test code = Lymphocytes 1.5 1.0-5.5 #) [place] [id number] 18:45:00 Test Item Value Reference Range Interpretation Comments Eosinophils # (test code = Eosinophils 0.1 <=0.5 #) [place] [id number] 18:45:00 Test Item Value Reference Range Interpretation Comments Monocytes # (test code = Monocytes #) 0.3 <=0.8 [place] [id number] 18:45:00 Test Item Value Reference Range Interpretation Comments Basophils (test code = Basophils) 0.8 <=1.0 [id number] 18:45:00 Test Item Value Reference Range Interpretation Comments Neutrophils # (test code = Neutrophils 2.4 1.5-8.1 #) [place] [id number] 18:45:00 Test Item Value Reference Range Interpretation Comments Microcyte (test code = 1+ *ABN*(10/15/18 Microcyte) 1:45 PM) [id number] 18:45:00 Test Item Value Reference Range Interpretation Comments Eosinophils (test code = Eosinophils) 2.4 <=4.0 [facility] [id number] 18:45:00 Test Item Value Reference Range Interpretation Comments Lymphocytes (test code = Lymphocytes) 35.1 20.0-40.0 [facility] [id number] 18:45:00 Test Item Value Reference Range Interpretation Comments Segs (test code = Segs) 54.9 45.0-75.0 [place] [address]-10-15 18:45:00 Test Item Value Reference Range Interpretation Comments Monocytes (test code = Monocytes) 6.8 2.0-12.0 [facility] [id number] 18:45:00 Test Item Value Reference Range Interpretation Comments MPV (test code = MPV) 8.2 7.4-10.4 [facility] [id number] 18:45:00 Test Item Value Reference Range Interpretation Comments Platelet (test code = Platelet) 255 133-450 [facility] Ho[id number] 18:45:00 Test Item Value Reference Range Interpretation Comments RDW (test code = RDW) 17.0 11.5-14.5 [facility] H[id number] 18:45:00 Test Item Value Reference Range Interpretation Comments MCH (test code = MCH) 23.1 pg 27.0-31.0 [facility] Ho[id number] 18:45:00 Test Item Value Reference Range Interpretation Comments MCHC (test code = MCHC) 30.9 32.0-36.0 [facility] Ho[id number] 18:45:00 Test Item Value Reference Range Interpretation Comments MCV (test code = MCV) 74.9 80.0-98.0 [facility] H[id number] 18:45:00 Test Item Value Reference Range Interpretation Comments Hct (test code = Hct) 31.4 36.0-48.0 [facility] [id number] 18:45:00 Test Item Value Reference Range Interpretation Comments Hgb (test code = Hgb) 9.7 12.0-16.0 [facility] Ho[id number] 18:45:00 Test Item Value Reference Range Interpretation Comments RBC (test code = RBC) 4.19 4.20-5.40 [facility] [id number] 18:45:00 Test Item Value Reference Range Interpretation Comments WBC (test code = WBC) 4.4 3.7-10.4 [facility] [id number] 18:30:00 Test Item Value Reference Range Interpretation Comments UA Leuk Est (test Negative (03/26/18 1:30 code = UA Leuk Est) PM) [facility] [id number] 18:30:00 Test Item Value Reference Range Interpretation Comments UA Blood (test code = Moderate *ABN*(03/26/18 UA Blood) 1:30 PM) [facility] [id number] 18:30:00 Test Item Value Reference Range Interpretation Comments UA Bili (test code = Negative *NA*(03/26/18 UA Bili) 1:30 PM) [facility] [id number] 18:30:00 Test Item Value Reference Range Interpretation Comments UA Nitrite (test code Negative (03/26/18 1:30 = UA Nitrite) PM) [facility] AND [id number] 18:30:00 Test Item Value Reference Range Interpretation Comments UA Urobilinogen (test code = UA 1.0 0.1-1.0 Urobilinogen) [facility] AND [id number] 18:30:00 Test Item Value Reference Range Interpretation Comments UA Protein (test code Negative (03/26/18 1:30 = UA Protein) PM) [facility] AND [id number] 18:30:00 Test Item Value Reference Range Interpretation Comments UA pH (test code = UA pH) 6.0 1 5.0-8.0 [facility] [id number] 18:30:00 Test Item Value Reference Range Interpretation Comments UA Spec Grav (test code = UA Spec 1.025 1 Grav) [facility] AND [id number] 18:30:00 Test Item Value Reference Range Interpretation Comments UA Glucose (test code Negative (03/26/18 1:30 = UA Glucose) PM) [facility] AND [id number] 18:30:00 Test Item Value Reference Range Interpretation Comments UA Ketones (test code Negative *NA*(03/26/18 = UA Ketones) 1:30 PM) [facility] [id number] 18:30:00 Test Item Value Reference Range Interpretation Comments UA Turbidity (test code = Clear (03/26/18 1:30 UA Turbidity) PM) [facility] [id number] 18:30:00 Test Item Value Reference Range Interpretation Comments UA Color (test code = Yellow *NA*(03/26/18 UA Color) 1:30 PM) [facility] [id number] 18:30:00 Test Item Value Reference Range Interpretation Comments UA Sq Epi (test code = None Seen (03/26/18 UA Sq Epi) 1:30 PM) [facility] [id number] 18:30:00 Test Item Value Reference Range Interpretation Comments UA WBC (test code = UA None Seen (03/26/18 WBC) 1:30 PM) [facility] [id number] 18:30:00 Test Item Value Reference Range Interpretation Comments UA RBC (test code = UA RBC) 0-2 /HPF <=2 [facility] [id number] 18:30:00 Test Item Value Reference Range Interpretation Comments UA Bacteria (test code = None Seen (03/26/18 UA Bacteria) 1:30 PM) [facility] [id number] 18:30:00 Test Item Value Reference Range Interpretation Comments U Preg (test code = U Negative (03/26/18 1:30 Preg) PM) [facility]TR[facility] [id number] 19:14:00 Test Item Value Reference Range Interpretation Comments TROPONIN I (BEAKER) (test code = 397) < ng/mL 0.00-0.03 Effective 05/15/2017: Reference Range ChangeNew: 0.00-0.03 ng/mL (Previous: 0.00-0.15 ng/mL)Reason for change: Updated to reflect the current testing platformTroponin I (TnI) levels must be interpretedin the context of the presenting symptoms and the clinical findings. Elevated TnI levels indicate rishabh cardial damage, but are not specific for ischemic heart disease. Elevated TnI levels are seen in patients with other cardiac conditions (including myocarditis and congestive heart failure), and slight TnI elevations occur in patients with other conditions, including sepsis, renal failure, acidosis, acute neurological disease, and persistent tachyarrythmia.COMPREHENSIVE METABOLIC [id number] 19:08:00 Test Item Value Reference Range Interpretation Comments TOTAL PROTEIN 7.0 gm/dL 6.0-8.5 (BEAKER) (test code = 770) ALBUMIN (BEAKER) 3.9 g/dL 3.5-5.0 (test code = 1145) ALKALINE PHOSPHATASE 60 U/L 30-115 (BEAKER) (test code = 346) BILIRUBIN TOTAL 0.6 mg/dL 0.1-1.2 (BEAKER) (test code = 377) SODIUM (BEAKER) (test 140 meq/L 135-148 code = 381) POTASSIUM (BEAKER) 3.8 meq/L 3.6-5.5 (test code = 379) CHLORIDE (BEAKER) 109 meq/L 98-106 H (test code = 382) CO2 (BEAKER) (test 22 meq/L 20-29 code = 355) BLOOD UREA NITROGEN 8 mg/dL 10-26 L (BEAKER) (test code = 354) CREATININE (BEAKER) 0.82 mg/dL 0.50-1.20 (test code = 358) GLUCOSE RANDOM 85 mg/dL 70-110 (BEAKER) (test code = 652) CALCIUM (BEAKER) 8.9 mg/dL 8.5-10.5 (test code = 697) AST (SGOT) (BEAKER) 14 U/L 5-40 (test code = 353) ALT (SGPT) (BEAKER) 15 U/L 5-50 (test code = 347) EGFR (BEAKER) (test 97 mL/min/1.73 ESTIMA JADA GFR IS code = 1092) sq m NOT ACCURATE CREATININE CLEARANCE IN PREDICTING GLOMERULAR FILTRATION RATE . ESTIMATED GFR I S NOT APPLICABLE FOR DIALYSIS PATIEN TS. SCREEN, [id number] 19:05:00 Test Item Value Reference Range Interpretation Comments TEST URINE (BEAKER) (test Negative code = 583) CBC W/PLT COUNT & AUTO [id number] 18:52:00 Test Item Value Reference Range Interpretation Comments WHITE BLOOD CELL COUNT (BEAKER) 5.6 K/ L 4.0-10.0 (test code = 775) RED BLOOD CELL COUNT (BEAKER) 4.18 M/ L 4.00-5.00 (test code = 761) HEMOGLOBIN (BEAKER) (test code = 9.4 GM/DL 12.0-15.0 L 410) HEMATOCRIT (BEAKER) (test code = 31.9 % 36.0-45.0 L 411) MEAN CORPUSCULAR VOLUME (BEAKER) 76.3 fL 82.0-99.0 L (test code = 753) MEAN CORPUSCULAR HEMOGLOBIN 22.5 pg 27.0-33.0 L (BEAKER) (test code = 751) MEAN CORPUSCULAR HEMOGLOBIN CONC 29.5 GM/DL 32.0-36.0 L (BEAKER) (test code = 752) RED CELL DISTRIBUTION WIDTH 16.1 % 10.3-14.2 H (BEAKER) (test code = 412) PLATELET COUNT (BEAKER) (test 228 K/CU MM 150-430 code = 756) MEAN PLATELET VOLUME (BEAKER) 10.0 fL 6.5-10.5 (test code = 754) NUCLEATED RED BLOOD CELLS 0 /100 WBC 0-0 (BEAKER) (test code = 413) NEUTROPHILS RELATIVE PERCENT 49 % (BEAKER) (test code = 429) LYMPHOCYTES RELATIVE PERCENT 42 % (BEAKER) (test code = 430) MONOCYTES RELATIVE PERCENT 8 % (BEAKER) (test code = 431) EOSINOPHILS RELATIVE PERCENT 1 % (BEAKER) (test code = 432) BASOPHILS RELATIVE PERCENT 0 % (BEAKER) (test code = 437) NEUTROPHILS ABSOLUTE COUNT 2.73 K/ L 1.80-8.00 (BEAKER) (test code = 670) LYMPHOCYTES ABSOLUTE COUNT 2.34 K/ L 1.48-4.50 (BEAKER) (test code = 414) MONOCYTES ABSOLUTE COUNT (BEAKER) 0.47 K/ L 0.00-1.30 (test code = 415) EOSINOPHILS ABSOLUTE COUNT 0.03 K/ L 0.00-0.50 (BEAKER) (test code = 416) BASOPHILS ABSOLUTE COUNT (BEAKER) 0.02 K/ L 0.00-0.20 (test code = 417) RAD, CHEST, 1 VIEW, NON [id number] 18:48:00Reason for exam:->CHEST PAINIs the patient ?->UnknownShould this be performed at the bedside?->No FINAL REPORT Chest, one view. HISTORY: Chest pain COMPARISON: None. DISCUSSION:Lungs are clear without focal consolidation. Cardiomediastinal silhouette is unremarkable. No acute osseous abnormality. No pleural effusion or pneumothorax. Visualized portions of the upper abdomen are unremarkable. IMPRESSION: No acute cardiopulmonary abnormality. Signed: Deepak Leyva MDReport Verified Date/Time: 07/27/2017 18:48:34 Reading Location: [facility] B1 [id number] Consult Reading Room Electronicallysigned by: DEEPAK LEYVA MD on 07/27/2017 06:48 PMHEPATIC FUNCTION [id number] 07:01:00 Test Item Value Reference Range Interpretation Comments TOTAL PROTEIN (BEAKER) (test code = 6.0 gm/dL 6.0-8.5 770) ALBUMIN (BEAKER) (test code = 1145) 3.4 g/dL 3.5-5.0 L BILIRUBIN TOTAL (BEAKER) (test code 0.5 mg/dL 0.1-1.2 = 377) BILIRUBIN DIRECT (BEAKER) (test 0.2 mg/dL 0.0-0.4 code = 706) ALKALINE PHOSPHATASE (BEAKER) (test 41 U/L 30-115 code = 346) AST (SGOT) (BEAKER) (test code = 11 U/L 5-40 353) ALT (SGPT) (BEAKER) (test code = 9 U/L 5-50 347) BASIC METABOLIC [id number] 07:01:00 Test Item Value Reference Range Interpretation Comments SODIUM (BEAKER) 138 meq/L 135-148 (test code = 381) POTASSIUM (BEAKER) 3.8 meq/L 3.6-5.5 (test code = 379) CHLORIDE (BEAKER) 110 meq/L 98-106 H (test code = 382) CO2 (BEAKER) (test 22 meq/L 20-29 code = 355) BLOOD UREA NITROGEN 7 mg/dL 10-26 L (BEAKER) (test code = 354) CREATININE (BEAKER) 0.71 mg/dL 0.50-1.20 (test code = 358) GLUCOSE RANDOM 85 mg/dL 70-110 (BEAKER) (test code = 652) CALCIUM (BEAKER) 8.0 mg/dL 8.5-10.5 L (test code = 697) EGFR (BEAKER) (test 115 mL/min/1.73 ESTIM ATED GFR IS code = 1092) sq m NOT ACCURATE CREATININE CLEARANCE IN PREDICTING GLOMERULAR FILTRATION RATE . ESTIMATED GFR I S NOT APPLICABLE FOR DIALYSIS PATIEN TS. CBC W/PLT COUNT & AUTO [id number] 06:46:00 Test Item Value Reference Range Interpretation Comments WHITE BLOOD CELL COUNT (BEAKER) 5.5 K/ L 4.0-10.0 (test code = 775) RED BLOOD CELL COUNT (BEAKER) 3.82 M/ L 4.00-5.00 L (test code = 761) HEMOGLOBIN (BEAKER) (test code = 9.3 GM/DL 12.0-15.0 L 410) HEMATOCRIT (BEAKER) (test code = 29.5 % 36.0-45.0 L 411) MEAN CORPUSCULAR VOLUME (BEAKER) 77.2 fL 82.0-99.0 L (test code = 753) MEAN CORPUSCULAR HEMOGLOBIN 24.3 pg 27.0-33.0 L (BEAKER) (test code = 751) MEAN CORPUSCULAR HEMOGLOBIN CONC 31.5 GM/DL 32.0-36.0 L (BEAKER) (test code = 752) RED CELL DISTRIBUTION WIDTH 15.2 % 10.3-14.2 H (BEAKER) (test code = 412) PLATELET COUNT (BEAKER) (test 207 K/CU MM 150-430 code = 756) MEAN PLATELET VOLUME (BEAKER) 10.5 fL 6.5-10.5 (test code = 754) NUCLEATED RED BLOOD CELLS 0 /100 WBC 0-0 (BEAKER) (test code = 413) NEUTROPHILS RELATIVE PERCENT 43 % (BEAKER) (test code = 429) LYMPHOCYTES RELATIVE PERCENT 49 % (BEAKER) (test code = 430) MONOCYTES RELATIVE PERCENT 6 % (BEAKER) (test code = 431) EOSINOPHILS RELATIVE PERCENT 1 % (BEAKER) (test code = 432) BASOPHILS RELATIVE PERCENT 1 % (BEAKER) (test code = 437) NEUTROPHILS ABSOLUTE COUNT 2.35 K/ L 1.80-8.00 (BEAKER) (test code = 670) LYMPHOCYTES ABSOLUTE COUNT 2.66 K/ L 1.48-4.50 (BEAKER) (test code = 414) MONOCYTES ABSOLUTE COUNT (BEAKER) 0.35 K/ L 0.00-1.30 (test code = 415) EOSINOPHILS ABSOLUTE COUNT 0.06 K/ L 0.00-0.50 (BEAKER) (test code = 416) BASOPHILS ABSOLUTE COUNT (BEAKER) 0.03 K/ L 0.00-0.20 (test code = 417) [id number] 23:20:00 Test Item Value Reference Range Interpretation Comments LIPASE (BEAKER) (test code = 749) 12 U/L 6-51 BASIC METABOLIC [id number] 23:20:00 Test Item Value Reference Range Interpretation Comments SODIUM (BEAKER) 137 meq/L 135-148 (test code = 381) POTASSIUM (BEAKER) 4.0 meq/L 3.6-5.5 (test code = 379) CHLORIDE (BEAKER) 108 meq/L 98-106 H (test code = 382) CO2 (BEAKER) (test 20 meq/L 20-29 code = 355) BLOOD UREA NITROGEN 10 mg/dL 10-26 (BEAKER) (test code = 354) CREATININE (BEAKER) 0.78 mg/dL 0.50-1.20 (test code = 358) GLUCOSE RANDOM 103 mg/dL 70-110 (BEAKER) (test code = 652) CALCIUM (BEAKER) 9.1 mg/dL 8.5-10.5 (test code = 697) EGFR (BEAKER) (test 103 mL/min/1.73 ESTIM ATED GFR IS code = 1092) sq m NOT ACCURATE CREATININE CLEARANCE IN PREDICTING GLOMERULAR FILTRATION RATE . ESTIMATED GFR I S NOT APPLICABLE FOR DIALYSIS PATIEN TS. HEPATIC FUNCTION [id number] 23:20:00 Test Item Value Reference Range Interpretation Comments TOTAL PROTEIN (BEAKER) (test code = 7.1 gm/dL 6.0-8.5 770) ALBUMIN (BEAKER) (test code = 1145) 4.0 g/dL 3.5-5.0 BILIRUBIN TOTAL (BEAKER) (test code 0.5 mg/dL 0.1-1.2 = 377) BILIRUBIN DIRECT (BEAKER) (test 0.2 mg/dL 0.0-0.4 code = 706) ALKALINE PHOSPHATASE (BEAKER) (test 50 U/L 30-115 code = 346) AST (SGOT) (BEAKER) (test code = 14 U/L 5-40 353) ALT (SGPT) (BEAKER) (test code = 14 U/L 5-50 347) SCREEN, [id number] 23:14:00 Test Item Value Reference Range Interpretation Comments TEST URINE (BEAKER) (test Negative code = 583) CBC W/PLT COUNT & AUTO [id number] 22:59:00 Test Item Value Reference Range Interpretation Comments WHITE BLOOD CELL COUNT (BEAKER) 6.8 K/ L 4.0-10.0 (test code = 775) RED BLOOD CELL COUNT (BEAKER) 4.19 M/ L 4.00-5.00 (test code = 761) HEMOGLOBIN (BEAKER) (test code = 9.8 GM/DL 12.0-15.0 L 410) HEMATOCRIT (BEAKER) (test code = 32.1 % 36.0-45.0 L 411) MEAN CORPUSCULAR VOLUME (BEAKER) 76.6 fL 82.0-99.0 L (test code = 753) MEAN CORPUSCULAR HEMOGLOBIN 23.4 pg 27.0-33.0 L (BEAKER) (test code = 751) MEAN CORPUSCULAR HEMOGLOBIN CONC 30.5 GM/DL 32.0-36.0 L (BEAKER) (test code = 752) RED CELL DISTRIBUTION WIDTH 15.1 % 10.3-14.2 H (BEAKER) (test code = 412) PLATELET COUNT (BEAKER) (test 226 K/CU MM 150-430 code = 756) MEAN PLATELET VOLUME (BEAKER) 10.2 fL 6.5-10.5 (test code = 754) NUCLEATED RED BLOOD CELLS 0 /100 WBC 0-0 (BEAKER) (test code = 413) NEUTROPHILS RELATIVE PERCENT 67 % (BEAKER) (test code = 429) LYMPHOCYTES RELATIVE PERCENT 26 % (BEAKER) (test code = 430) MONOCYTES RELATIVE PERCENT 6 % (BEAKER) (test code = 431) EOSINOPHILS RELATIVE PERCENT 1 % (BEAKER) (test code = 432) BASOPHILS RELATIVE PERCENT 0 % (BEAKER) (test code = 437) NEUTROPHILS ABSOLUTE COUNT 4.54 K/ L 1.80-8.00 (BEAKER) (test code = 670) LYMPHOCYTES ABSOLUTE COUNT 1.78 K/ L 1.48-4.50 (BEAKER) (test code = 414) MONOCYTES ABSOLUTE COUNT (BEAKER) 0.40 K/ L 0.00-1.30 (test code = 415) EOSINOPHILS ABSOLUTE COUNT 0.04 K/ L 0.00-0.50 (BEAKER) (test code = 416) BASOPHILS ABSOLUTE COUNT (BEAKER) 0.03 K/ L 0.00-0.20 (test code = 417) URINALYSIS W/ [id number] 22:21:00 Test Item Value Reference Range Interpretation Comments COLOR (BEAKER) (test code = Yellow 470) CLARITY (BEAKER) (test code = Slightly Hazy 469) SPECIFIC GRAVITY UA (BEAKER) >= 1.001-1.035 (test code = 468) PH UA (BEAKER) (test code = 6.0 5.0-8.0 467) PROTEIN UA (BEAKER) (test code Negative Negative = 464) GLUCOSE UA (BEAKER) (test code Negative Negative = 365) KETONES UA (BEAKER) (test code Negative Negative = 371) BILIRUBIN UA (BEAKER) (test Negative Negative code = 462) BLOOD UA (BEAKER) (test code = Trace Negative A 461) NITRITE UA (BEAKER) (test code Negative Negative = 465) LEUKOCYTE ESTERASE UA (BEAKER) Negative Negative (test code = 466) UROBILINOGEN UA (BEAKER) (test 1.0 mg/dL 0.2-1.0 code = 463) BACTERIA (BEAKER) (test code = Moderate 517) MUCUS (BEAKER) (test code = Moderate 1574) RBC UA-MANUAL (BEAKER) (test <5 /HPF code = 1659) WBC UA-MANUAL (BEAKER) (test <5 /HPF code = 1661) SQUAMOUS EPITHELIAL MANUAL 20-50 /HPF (BEAKER) (test code = 1663) SOURCE(BEAKER) (test code = 5107) CARDIAC [id number] 07:51:00 Test Item Value Reference Range Interpretation Comments Troponin-I (test code = Troponin-I) no gt <=0.40 [facility] [id number] 07:51:00 Test Item Value Reference Range Interpretation Comments CK MB (test code = CK MB) 0.6 0.5-3.6 [facility] [id number] 07:51:00 Test Item Value Reference Range Interpretation Comments Total CK (test code = Total CK) 84 12-191 [facility] [id number] 07:51:00 Test Item Value Reference Range Interpretation Comments CK MB Index (test code = CK MB Index) 0.7 <=2.5 [facility] [id number] 07:51:00 Test Item Value Reference Range Interpretation Comments Lipase Lvl (test code = Lipase Lvl) 78 73-393 [facility] [id number] 07:51:00 Test Item Value Reference Range Interpretation Comments eGFR (test code = eGFR) 129 [facility] [id number] 07:51:00 Test Item Value Reference Range Interpretation Comments Total Protein (test code = Total 7.7 6.4-8.4 Protein) [facility] [id number] 07:51:00 Test Item Value Reference Range Interpretation Comments CO2 (test code = CO2) 22 24-32 [facility] [id number] 07:51:00 Test Item Value Reference Range Interpretation Comments Calcium Lvl (test code = Calcium Lvl) 8.7 8.5-10.5 [facility] [id number] 07:51:00 Test Item Value Reference Range Interpretation Comments Potassium Lvl (test code = Potassium 3.7 3.5-5.1 Lvl) [facility] [id number] 07:51:00 Test Item Value Reference Range Interpretation Comments Chloride Lvl (test code = Chloride Lvl) 106 95-109 [facility] [id number] 07:51:00 Test Item Value Reference Range Interpretation Comments Sodium Lvl (test code = Sodium Lvl) 137 135-145 [facility] [id number] 07:51:00 Test Item Value Reference Range Interpretation Comments Creatinine Lvl (test code = Creatinine 0.72 0.50-1.40 Lvl) [facility] [id number] 07:51:00 Test Item Value Reference Range Interpretation Comments Bili Total (test code = Bili Total) 0.3 0.2-1.3 [facility]2016-11-17 07:51:00 Test Item Value Reference Range Interpretation Comments AGAP (test code = AGAP) 12.7 10.0-20.0 [facility]2016-11-17 07:51:00 Test Item Value Reference Range Interpretation Comments A/G Ratio (test code = A/G Ratio) 1.0 0.7-1.6 [facility]2016-11-17 07:51:00 Test Item Value Reference Range Interpretation Comments B/C Ratio (test code = B/C Ratio) 11 6-25 [facility]2016-11-17 07:51:00 Test Item Value Reference Range Interpretation Comments Globulin (test code = Globulin) 3.9 2.7-4.2 [facility]2016-11-17 07:51:00 Test Item Value Reference Range Interpretation Comments Albumin Lvl (test code = Albumin Lvl) 3.8 3.5-5.0 [facility]2016-11-17 07:51:00 Test Item Value Reference Range Interpretation Comments AST (test code = AST) 13 <=37 [facility]2016-11-17 07:51:00 Test Item Value Reference Range Interpretation Comments Alk Phos (test code = Alk Phos) 65 39-136 [facility]2016-11-17 07:51:00 Test Item Value Reference Range Interpretation Comments ALT (test code = ALT) 24 <=65 [facility]2016-11-17 07:51:00 Test Item Value Reference Range Interpretation Comments BUN (test code = BUN) 8 7-22 [facility]2016-11-17 07:51:00 Test Item Value Reference Range Interpretation Comments Glucose Lvl (test code = Glucose Lvl) 135 70-99 [id number] 07:51:00 Test Item Value Reference Range Interpretation Comments S Preg (test code = S Negative *NA*(04/28/16 Preg) 1:51 AM) [id number] 07:51:00 Test Item Value Reference Range Interpretation Comments Hct (test code = Hct) 33.5 36.0-48.0 [facility]Q[id number] 07:51:00 Test Item Value Reference Range Interpretation Comments Hgb (test code = Hgb) 10.4 12.0-16.0 [id number] 07:51:00 Test Item Value Reference Range Interpretation Comments RBC (test code = RBC) 4.45 4.20-5.40 [facility] HospitalFhxlustLPOKWQNDGX4879-87-15 07:51:00 Test Item Value Reference Range Interpretation Comments WBC (test code = WBC) 6.1 3.7-10.4 [facility]OihswpgPTUYDIDKGN7594-44-58 07:51:00 Test Item Value Reference Range Interpretation Comments Platelet (test code = Platelet) 240 133-450 [facility] HospitalRrzljcbZYVYCWZMYI7479-38-17 07:51:00 Test Item Value Reference Range Interpretation Comments RDW (test code = RDW) 16.0 11.5-14.5 [facility] HospitalDfshrdzDOWLGGUOKL8249-15-49 07:51:00 Test Item Value Reference Range Interpretation Comments MCHC (test code = MCHC) 30.9 32.0-36.0 [facility] HospitalPtaktwdSZYAGAUCIA8915-47-96 07:51:00 Test Item Value Reference Range Interpretation Comments MCH (test code = MCH) 23.3 pg 27.0-31.0 [facility] HospitalVtswsdlJDLFRTHUAJ5500-66-51 07:51:00 Test Item Value Reference Range Interpretation Comments MCV (test code = MCV) 75.4 80.0-98.0 [facility] HospitalNisdjioWJNUHAEJTG1594-49-44 07:51:00 Test Item Value Reference Range Interpretation Comments MPV (test code = MPV) 7.8 7.4-10.4 [facility] HospitalHgoczruKLSXMKXOWT1092-07-06 07:51:00 Test Item Value Reference Range Interpretation Comments Segs-Bands # (test code = Segs-Bands #) 4.6 1.5-8.1 [facility] HospitalLceheyoJHDFISEOKP4996-61-48 07:51:00 Test Item Value Reference Range Interpretation Comments Lymphocytes # (test code = Lymphocytes 1.1 1.0-5.5 #) [facility] HospitalT[id number] 07:51:00 Test Item Value Reference Range Interpretation Comments Monocytes # (test code = Monocytes #) 0.4 <=0.8 [facility] HospitalSevboxfKLXNRLOERF5288-78-79 07:51:00 Test Item Value Reference Range Interpretation Comments Microcyte (test code = 1+ *ABN*(04/28/16 Microcyte) 1:51 AM) [facility] Hospit[id number] 07:51:00 Test Item Value Reference Range Interpretation Comments Lymphocytes (test code = Lymphocytes) 17.8 20.0-40.0 [facility] HospitalVuzcqcoMNHVXOONSE7100-71-27 07:51:00 Test Item Value Reference Range Interpretation Comments Monocytes (test code = Monocytes) 6.2 2.0-12.0 [facility] HospitalXbjfskxFUKAVTTVWC4101-76-14 07:51:00 Test Item Value Reference Range Interpretation Comments Segs (test code = Segs) 74.9 45.0-75.0 [facility] HospitalWamfdhyYYMYRGSFTO4675-27-40 07:51:00 Test Item Value Reference Range Interpretation Comments Eosinophils (test code = Eosinophils) 0.6 <=4.0 [facility] HospitalCmiwyvmELVDMUDOEE3981-15-91 07:51:00 Test Item Value Reference Range Interpretation Comments Basophils (test code = Basophils) 0.5 <=1.0 [facility] Hospit[id number] 07:51:00 Test Item Value Reference Range Interpretation Comments Plt Morph (test code = Normal (04/28/16 1:51 Plt Morph) AM) [facility]
[2023-04-23] MEDS ORDERED: ONDANSETRON 4 MG/2 ML VIAL ONE (14:43)
[2023-04-23] MEDS ORDERED: FAMOTIDINE 20 MG/2 ML VIAL IV ONE (14:43)
[2023-04-23] MEDS ORDERED: NA CHLORIDE 0.9% 1,000 ML ONE (14:43)
[2023-04-23 15:03] LABS: Hematocrit 30.6 % (36.0-45.0); Lymphocytes % 17.2 % (15.3-44.8); MCV 73.6 fL (80-100); MPV 7.3 fL (7.6-11.3); Platelets 297 thou/uL (152-406); RBC Red Blood Cell Count 4.15 M/uL (3.86-4.86)
[2023-04-23 15:32] LABS: Albumin 3.5 g/dL (3.4-5.0); Bilirubin Total 0.4 mg/dL (0.2-1.0); Potassium 3.5 mEq/L (3.5-5.1); Protein, Total 7.3 g/dL (6.4-8.2)
--- NOTE | 2023-04-23 17:35 | RAD REPORT ---
EXAM DESCRIPTION: CT - Abdomen Pelvis W Contrast - 04/23/2023 5:19 pm CLINICAL HISTORY: Abdominal pain COMPARISON: none. TECHNIQUE: Computed axial tomography of the abdomen pelvis was obtained. 100 cc Isovue-300 was admin istered intravenously. Oral contrast was not requested which limits evaluation of bowel and appendix All CT scans are performed using dose optimization technique as appropriate and may include automated exposure control or mA/KV adjustment according to patient size. FINDINGS: The liver, spleen, pancreas, adrenal and kidneys appear unremarkable. There is no evidence of diverticulitis. Cholecystectomy. No adnexal mass Small umbilical hernia Appendix is not visualized IMPRESSION: No acute abnormality is displayed.
--- NOTE | 2023-04-23 17:54 | EDPHYS ---
Physician Documentation [facility] Name: Doretha Aguilar Age: 37 yrs Sex: Female : 1985 Arrival Date: 04/23/2023 Time: 14:12 Bed 15 Private MD: ED Physician Eros Cruz HPI: 04/23 15:09 This 37 yrs old Black Female presents to ER via EMS with complaints of abdominal pain. kb 15:09 Patient is a 37-year-old female who reports abdominal pain, nausea and vomiting that kb started just prior to arrival.. Historical: - Allergies: 14:23 SHELLFISH; rs5 - PMHx: 14:23 Asthma; rs5 - PSHx: 14:23 Cholecystectomy; rs5 - Immunization history:: Adult Immunizations unknown. - Social history:: Smoking status: Patient denies any tobacco usage or history of. ROS: 15:10 Constitutional: Negative for fever, chills, and weight loss, kb 15:10 Abdomen/GI: Positive for abdominal pain, nausea and vomiting, 15:10 All other systems are negative, Exam: 15:10 Constitutional: This is a well developed, well nourished patient who is awake, alert, kb and in no acute distress. Head/Face: Normocephalic, atraumatic. ENT: Moist Mucous membranes Cardiovascular: Regular rate Respiratory: Respirations even and unlabored. No increased work of breathing. Talking in full sentences Skin: Warm, dry with normal turgor. Normal color. MS/ Extremity: Pulses equal, no cyanosis. Neurovascular intact. Full, normal range of motion. Neuro: Awake and alert, GCS 15, oriented to person, place, time, and situation. Moves all extremities. Normal gait. 15:10 Abdomen/GI: Inspection: abdomen appears normal, Bowel sounds: normal, Palpation: soft, in all quadrants, mild abdominal tenderness, in the left upper quadrant, Vital Signs: 14:20 BP 122 / 87; Pulse 77; Resp 17; Temp 97.8(O); Pulse Ox 99% ; rs5 14:20 BP 118 / 73; Pulse 85; Resp 17; Pulse Ox 99% on R/A; rs5 15:25 BP 122 / 87; Pulse 82; Resp 18; Pulse Ox 99% on R/A; rs5 16:30 BP 114 / 76; Pulse 75; Resp 17; Pulse Ox 99% on R/A; rs5 17:35 BP 118 / 82; Pulse 79; Resp 17; Pulse Ox 99% on R/A; rs5 MDM: 14:18 Patient medically screened. kb 15:10 Differential diagnosis: bowel obstruction, diverticulitis, non-specific abd pain, kb pancreatitis. Data reviewed: vital signs, nurses notes. Historians other than the Patient: EMS: [facility]. 17:46 Counseling: I had a detailed discussion with the patient and/or guardian regarding the kb historical points, exam findings, and any diagnostic results supporting the discharge/admit diagnosis, lab results, radiology results, the need for outpatient follow up, a family practitioner, to return to the emergency department if symptoms worsen or persist or if there are any questions or concerns that arise at home. 04/23 14:19 Order name: CBC with Diff; Complete Time: 15:36 kb 04/23 14:19 Order name: CMP; Complete Time: 15:36 kb 04/23 14:19 Order name: Lipase; Complete Time: 15:36 kb 04/23 14:19 Order name: CT Abd/Pelvis - IV Contrast Only; Complete Time: 17:41 kb 04/23 14:19 Order name: IV Saline Lock; Complete Time: 14:49 kb 04/23 14:19 Order name: Labs collected and sent; Complete Time: 14:49 kb Administered Medications: 14:37 Drug: NS 0.9% IV 1000 ml IV at 1 bolus Per protocol; 1000 mL bolus Route: IV; Rate: 1 rs5 bolus; Site: left antecubital; 15:00 Follow up: Response: No adverse reaction rs5 14:37 Drug: Famotidine IVP 20 mg IVP once; dilute with 10 mL 0.9% NaCl; give over 2 minutes rs5 Route: IVP; Site: left antecubital; 15:00 Follow up: Response: No adverse reaction; Pain is decreased rs5 14:37 Drug: Ondansetron IVP 4 mg IVP once; over 2 minutes Route: IVP; Site: left antecubital; rs5 15:00 Follow up: Response: No adverse reaction; Nausea is decreased rs5 18:06 Not Given (Patient Refused; Pt states "I just used the restroom and don't think I need rs5 this medication anymore""n): dulcolaxdelayed release tablet 5 mg PO once Disposition Summary: 04/23/23 17:54 Discharge Ordered Notes: Location: Home kb Condition: Stable kb Diagnosis - Abdominal pain, Generalized kb Followup: kb - With: Emergency Department - When: As needed - Reason: Worsening of condition Followup: kb - With: Private Physician - When: 2 - 3 days - Reason: Recheck today's complaints, Continuance of care, Re-evaluation by your physician Discharge Instructions: - Abdominal Pain, Adult, [id number] kb - Discharge Summary Sheet ll1 Forms: - Medication Reconciliation Form kb - Thank You Letter kb - Antibiotic Education kb - Prescription Opioid Use kb - Patient Portal Instructions kb - Leadership Thank You Letter kb - SBAR form ll1 Prescriptions: - Zofran 4 mg Oral tablet - take 1 tablet ORAL route every 6 hours As needed; 20 tablet; Refills: 0, kb Product Selection Permitted - dicyclomine 20 mg Oral tablet - take 1 tablet ORAL route 4 times per day As needed; 20 tablet; Refills: 0, kb Product Selection Permitted Addendum: 04/25/2023 07:41 I was immediately available for consultation during this patient's visit. I did not e c2 personally see the patient or guide the patient's care.. Signatures: Dispatcher [employer] Aster Grover, LUIGI BORRERO-Cedric Tsai, RN RN rs5 Eros Cruz MD MD ec2 Corrections: (The following items were deleted from the chart) 04/23 14:23 14:23 PMHx: Anemia; rs5 rs5
--- NOTE | 2023-04-23 17:54 | ER ---
Nurse's Notes [facility] Name: Doretha Aguilar Age: 37 yrs Sex: Female : 1985 Arrival Date: 04/23/2023 Time: 14:12 Bed 15 Private MD: Diagnosis: Abdominal pain, Generalized Presentation: 04/23 14:20 Chief complaint: EMS states: Pt started having lower abdominal pain this morning with rs5 nausea and vomiting. Coronavirus screen: At this time, the client does not indicate any symptoms associated with coronavirus-19. Ebola Screen: No symptoms or risks identified at this time. Initial Sepsis Screen: Does the patient meet any 2 criteria? No. Patient's initial sepsis screen is negative. Does the patient have a suspected source of infection? No. Patient's initial sepsis screen is negative. Risk Assessment: Do you want to hurt yourself or someone else? Patient reports no desire to harm self or others. Onset of symptoms was April 23, 2023 at 12:00. 14:20 Method Of Arrival: EMS: [facility] rs5 14:20 Acuity: AALIYAH 3 rs5 Historical: - Allergies: 14:23 SHELLFISH; rs5 - PMHx: 14:23 Asthma; rs5 - PSHx: 14:23 Cholecystectomy; rs5 - Immunization history:: Adult Immunizations unknown. - Social history:: Smoking status: Patient denies any tobacco usage or history of. Screenin:15 [facility] ED Fall Risk Assessment (Adult) History of falling in the last 3 months, rs5 including since admission No falls in past 3 months (0 pts) Confusion or Disorientation No (0 pts) Intoxicated or Sedated No (0 pts) Impaired Gait No (0 pts) Mobility Assist Device Used No (0 pt) Altered Elimination No (0 pt) Score/Fall Risk Level 0 - 2 = Low Risk Oriented to surroundings, Maintained a safe environment. Abuse screen: Denies threats or abuse. Nutritional screening: No deficits noted. Tuberculosis screening: No symptoms or risk factors identified. Assessment: 14:15 General: Appears in no apparent distress. uncomfortable, Behavior is calm, cooperative. rs5 Pain: Complains of pain in lower abdominal pain bilat Pain does not radiate. Pain currently is 7 out of 10 on a pain scale. Quality of pain is described as aching, Pain began 3 hours ago. Is continuous. Neuro: Level of Consciousness is awake, alert, obeys commands, Oriented to person, place, time, situation. Cardiovascular: Heart tones S1 S2 present Rhythm is regular. Respiratory: Airway is patent Respiratory effort is even, unlabored, Respiratory pattern is regular, symmetrical, Breath sounds are clear bilaterally. GI: Bowel sounds present X 4 quads. Abd is soft and non tender X 4 quads. Reports nausea. : No signs and/or symptoms were reported regarding the genitourinary system. EENT: No signs and/or symptoms were reported regarding the EENT system. Derm: Skin is intact, Skin is dry, Skin is normal, Skin temperature is warm. Musculoskeletal: Range of motion: intact in all extremities. 15:00 Pain: Complains of pain in lower abdomen Pain does not radiate. Pain currently is 3 out rs5 of 10 on a pain scale. Quality of pain is described as aching, Is continuous. 15:00 Reassessment: Patient states feeling better. Patient states symptoms have improved. rs5 16:02 Reassessment: Patient and/or family updated on plan of care and expected duration. Pain rs5 level reassessed. Patient is alert, oriented x 3, equal unlabored respirations, skin warm/dry/pink. 17:02 Reassessment: Pt to CT via wheelchair . aa5 18:06 Reassessment: Patient and/or family updated on plan of care and expected duration. Pain rs5 level reassessed. Patient is alert, oriented x 3, equal unlabored respirations, skin warm/dry/pink. Vital Signs: 14:20 BP 122 / 87; Pulse 77; Resp 17; Temp 97.8(O); Pulse Ox 99% ; rs5 14:20 BP 118 / 73; Pulse 85; Resp 17; Pulse Ox 99% on R/A; rs5 15:25 BP 122 / 87; Pulse 82; Resp 18; Pulse Ox 99% on R/A; rs5 16:30 BP 114 / 76; Pulse 75; Resp 17; Pulse Ox 99% on R/A; rs5 17:35 BP 118 / 82; Pulse 79; Resp 17; Pulse Ox 99% on R/A; rs5 ED Course: 14:15 Patient arrived in ED. rs5 14:15 Cedric Yan, RN is Primary Nurse. rs5 14:15 Patient has correct armband on for positive identification. Placed in gown. Bed in low rs5 position. Call light in reach. Side rails up X2. 14:18 Aster Adams [facility]-C [facility]. kb 14:18 Eros Cruz MD is Attending Physician. kb 14:23 Triage completed. rs5 17:21 CT Abd/Pelvis - IV Contrast Only In Process Unspecified. EDMS 18:09 No provider procedures requiring assistance completed. rs5 18:09 IV discontinued, intact, bleeding controlled, No redness/swelling at site. Pressure rs5 dressing applied. Administered Medications: 14:37 Drug: NS 0.9% IV 1000 ml IV at 1 bolus Per protocol; 1000 mL bolus Route: IV; Rate: 1 rs5 bolus; Site: left antecubital; 15:00 Follow up: Response: No adverse reaction rs5 14:37 Drug: Famotidine IVP 20 mg IVP once; dilute with 10 mL 0.9% NaCl; give over 2 minutes rs5 Route: IVP; Site: left antecubital; 15:00 Follow up: Response: No adverse reaction; Pain is decreased rs5 14:37 Drug: Ondansetron IVP 4 mg IVP once; over 2 minutes Route: IVP; Site: left antecubital; rs5 15:00 Follow up: Response: No adverse reaction; Nausea is decreased rs5 18:06 Not Given (Patient Refused; Pt states "I just used the restroom and don't think I need rs5 this medication anymore""n): dulcolaxdelayed release tablet 5 mg PO once Medication: 18:09 VIS not applicable for this client. rs5 Outcome: 17:54 Discharge ordered by . kb 18:07 Discharged to home ambulatory, rs5 18:07 Condition: stable 18:07 Discharge instructions given to patient, Instructed on discharge instructions, follow up and referral plans. medication usage, Demonstrated understanding of instructions, follow-up care, medications, Prescriptions given X 2, 18:10 Patient left the ED. rs5 Signatures: Dispatcher [employer] EDAL Aster Adams FNP-C FNP-Ariella Rivera RN RN aa5 Cedric Yan RN RN rs5 Corrections: (The following items were deleted from the chart) 14:23 14:23 PMHx: Anemia; rs5 rs5
[2023-04-23 18:15] VITALS: TEMP 97.8; O2SAT 99
[2023-04-23 18:18] VITALS: BP 118/82
== END 2023-04-23 18:10 | disposition home or self-care (01) ==
LOC: ER 14:12
DX: R10.84 Generalized abdominal pain (principal); R11.2 Nausea with vomiting, unspecified; Z91.013 Allergy to seafood
CPT/HCPCS: 85025; 36415; 83690; 80053; 74177; 96375; 96374; 99284; Q9967; J2405; J7030

== ENCOUNTER → 2023-07-06 | Emergency (ER) | payer OTHER ==
[~2023-07-06] MED LIST: AMLODIPINE 10 MG TAB ONE; hydroCHLOROthiazide 25 MG TAB ONE
--- NOTE | 2023-07-06 16:03 | RAD REPORT ---
EXAM DESCRIPTION: [facility] Single View07/06/2023 3:25 pm CLINICAL HISTORY: cough COMPARISON: 2007 FINDINGS: The lungs appear clear of acute infiltrate. The heart is normal size IMPRESSION: No acute abnormalities displayed
[2023-07-06 16:15] LABS: Protime INR 1.11
[2023-07-06 16:16] LABS: Absolute Lymphocytes (CBC) 1.8 K/uL (0.7-4.9); Hematocrit 30.5 % (36.0-45.0); Lymphocytes % 38.7 % (15.3-44.8); MCV 74.5 fL (80-100); MPV 7.6 fL (7.6-11.3); Platelets 227 thou/uL (152-406); RBC Red Blood Cell Count 4.09 M/uL (3.86-4.86)
[2023-07-06 16:31] LABS: Bilirubin Total 0.6 mg/dL (0.2-1.0); Potassium 4.2 mEq/L (3.5-5.1)
[2023-07-06 16:32] LABS: Albumin 3.5 g/dL (3.4-5.0); Bilirubin Direct 0.1 mg/dL (0-0.2); Bilirubin Indirect, Calculated 0.5 mg/dL (0.2-0.8); Magnesium 1.9 mg/dL (1.6-2.4); Protein, Total 7.5 g/dL (6.4-8.2); Troponin High Sensitivity 4.6 pg/mL (<58.9)
[2023-07-06 16:52] LABS: Anisocytosis 1+; Blood Morphology Comment NOTED (NOT SEEN); Platelet Estimate ADEQ; White Blood Cell Scan OK (OK)
--- NOTE | 2023-07-06 17:20 | EDPHYS ---
Physician Documentation [facility] Name: Doretha Aguilar Age: 38 yrs Sex: Female : 1985 Arrival Date: 07/06/2023 Time: 15:00 Bed 20 Private MD: ED Physician Chacho Araujo HPI: 07/06 17:12 This 38 yrs old Black Female presents to ER via Ambulatory with complaints of High ubaldo Blood Pressure. 17:12 The patient has elevated blood pressure and discovered this at home. Onset: The ubaldo symptoms/episode began/occurred 2 day(s) ago. Modifying factors: The symptoms are aggravated by activity, The symptoms are alleviated by remaining still. Associated signs and symptoms: Pertinent positives: headache. Severity of symptoms: At its worst the blood pressure was moderate, in the emergency department the blood pressure is unchanged. The patient has not experienced similar symptoms in the past. 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 Flu vaccine is not up to date. - Social history:: Smoking status: Patient denies any tobacco usage or history of. Patient uses alcohol, only on a social basis. ROS: 17:13 Constitutional: Negative for fever, chills, and weight loss, Eyes: Negative for injury, ubaldo pain, redness, and discharge, ENT: Negative for injury, pain, and discharge, Neck: Negative for injury, pain, and swelling, Cardiovascular: Negative for chest pain, palpitations, and edema, Respiratory: Negative for shortness of breath, cough, wheezing, and pleuritic chest pain, Abdomen/GI: Negative for abdominal pain, nausea, vomiting, diarrhea, and constipation, Back: Negative for injury and pain, : Negative for injury, bleeding, discharge, and swelling, MS/Extremity: Negative for injury and deformity, Skin: Negative for injury, rash, and discoloration, Neuro: Negative for headache, weakness, numbness, tingling, and seizure, Psych: Negative for depression, anxiety, suicide ideation, homicidal ideation, and hallucinations, Allergy/Immunology: Negative for hives, rash, and allergies, Endocrine: Negative for neck swelling, polydipsia, polyuria, polyphagia, and marked weight changes, Hematologic/Lymphatic: Negative for swollen nodes, abnormal bleeding, and unusual bruising, Exam: 17:13 Constitutional: This is a well developed, well nourished patient who is awake, alert, ubaldo and in no acute distress. Head/Face: Normocephalic, atraumatic. Eyes: Pupils equal round and reactive to light, extra-ocular motions intact. Lids and lashes normal. Conjunctiva and sclera are non-icteric and not injected. Cornea within normal limits. Periorbital areas with no swelling, redness, or edema. ENT: Nares patent. No nasal discharge, no septal abnormalities noted. Tympanic membranes are normal and external auditory canals are clear. Oropharynx with no redness, swelling, or masses, exudates, or evidence of obstruction, uvula midline. Mucous membranes moist. Neck: Trachea midline, no thyromegaly or masses palpated, and no cervical lymphadenopathy. Supple, full range of motion without nuchal rigidity, or vertebral point tenderness. No Meningismus. Chest/axilla: Normal chest wall appearance and motion. Nontender with no deformity. No lesions are appreciated. Cardiovascular: Regular rate and rhythm with a normal S1 and S2. No gallops, murmurs, or rubs. Normal PMI, no JVD. No pulse deficits. Respiratory: Lungs have equal breath sounds bilaterally, clear to auscultation and percussion. No rales, rhonchi or wheezes noted. No increased work of breathing, no retractions or nasal flaring. Abdomen/GI: Soft, non-tender, with normal bowel sounds. No distension or tympany. No guarding or rebound. No evidence of tenderness throughout. Back: No spinal tenderness. No costovertebral tenderness. Full range of motion. Skin: Warm, dry with normal turgor. Normal color with no rashes, no lesions, and no evidence of cellulitis. MS/ Extremity: Pulses equal, no cyanosis. Neurovascular intact. Full, normal range of motion. Neuro: Awake and alert, GCS 15, oriented to person, place, time, and situation. Cranial nerves II-XII grossly intact. Motor strength 5/5 in all extremities. Sensory grossly intact. Cerebellar exam normal. Normal gait. Psych: Awake, alert, with orientation to person, place and time. Behavior, mood, and affect are within normal limits. 17:13 ECG was reviewed by the Attending Physician. Vital Signs: 15:22 BP 129 / 90; Pulse 78; Resp 18; Temp 97.7; Pulse Ox 100% ; Pain 7/10; ap3 15:37 BP 139 / 95; Pulse 80; Resp 18; Temp 97.8(O); Pulse Ox 99% ; rs5 16:11 BP 123 / 79; Pulse 81; Resp 18; Pulse Ox 99% on R/A; rs5 17:23 BP 130 / 82; Pulse 75; Resp 18; Pulse Ox 99% on R/A; rs5 15:22 Pain Scale: Adult ap3 [place] Coma Score: 17:15 Eye Response: spontaneous(4). Motor Response: obeys commands(6). Verbal Response: ubaldo oriented(5). Total: 15. MDM: 15:09 Patient medically screened. ubaldo 17:15 Differential diagnosis: hypertensive crisis, Malignant HTN, intracerebral hemorrhage. ubaldo Data reviewed: vital signs, nurses notes, lab test result(s), EKG, radiologic studies, plain films. Consideration of Admission/Observation Escalation of care including admission/observation considered. I considered the following discharge prescriptions or medication management in the emergency department Medications were administered in the Emergency Department. See MAR. Independent interpretation of the following test(s) in the Emergency Department EKG: See my EKG interpretation above. Test considered but Not performed: CT: no ct head. Historians other than the Patient: pt well informed. Care significantly affected by the following chronic conditions: Hypertension, asthma. Counseling: I had a detailed discussion with the patient and/or guardian regarding the historical points, exam findings, and any diagnostic results supporting the discharge/admit diagnosis, lab results, radiology results, the need for outpatient follow up, for definitive care, a sole polisher, a family practitioner. 07/06 15:09 Order name: Basic Metabolic Panel; Complete Time: 16:36 [facility] 07/06 15:09 Order name: CBC with Diff; Complete Time: 17:12 [facility] 07/06 15:09 Order name: LFT's; Complete Time: 16:36 [facility] 07/06 15:09 Order name: Magnesium; Complete Time: 16:36 [facility] 07/06 15:09 Order name: NT PRO-BNP; Complete Time: 16:36 [facility] 07/06 15:09 Order name: PT-INR; Complete Time: 16:36 [facility] 07/06 15:09 Order name: Troponin HS; Complete Time: 16:36 [facility] 07/06 16:52 Order name: CBC Smear Scan; Complete Time: 17:12 [facility] 07/06 15:09 Order name: XRAY Chest (1 view); Complete Time: 16:36 [facility] 07/06 15:09 Order name: EKG; Complete Time: 15:09 [facility] 07/06 15:09 Order name: Cardiac monitoring; Complete Time: 16:07 [facility] 07/06 15:09 Order name: EKG - Nurse/Tech; Complete Time: 16:07 [facility] 07/06 15:09 Order name: IV Saline Lock; Complete Time: 16: [facility] 07/06 15:09 Order name: Labs collected and sent; Complete Time: 16:07 [facility] 07/06 15:09 Order name: O2 Per Protocol; Complete Time: 16:07 [facility] 07/06 15:09 Order name: O2 Sat Monitoring; Complete Time: 16:07 [facility] EC:13 Rate is 74 beats/min. Rhythm is regular. FL interval is normal. QRS interval is normal. ubaldo QT interval is normal. No Q waves. T waves are Normal. No ST changes noted. Clinical impression: Normal ECG and No evidence of ischemia. Interpreted by me. Reviewed by me. Administered Medications: 15:40 Drug: Norvasc PO 10 mg PO once Route: PO; rs5 16:20 Follow up: Response: No adverse reaction; Blood pressure is lowered rs5 15:40 Drug: Hydrochlorothiazide PO 12.5 mg PO once Route: PO; rs5 16:20 Follow up: Response: No adverse reaction; Blood pressure is lowered rs5 Disposition Summary: 07/06/23 17:19 Discharge Ordered Notes: Location: Home ubaldo Problem: new ubaldo Symptoms: have improved ubaldo Condition: Stable ubaldo Diagnosis - Essential (primary) hypertension ubaldo - Anemia, unspecified ubaldo Followup: ubaldo - With: Private Physician - When: 2 - 3 days - Reason: Recheck today's complaints, Continuance of care, Re-evaluation by your physician Followup: ubaldo - With: Collin Cerna MD - When: 2 - 3 days - Reason: Recheck today's complaints, Re-evaluation by your physician Discharge Instructions: - Discharge Summary Sheet ubaldo - Iron Deficiency Anemia, Adult ubaldo - Anemia ubaldo - Hypertension, Adult ubaldo - Hypertension, Adult, [id number] ubaldo - How to Take Your Blood Pressure, [id number] ubaldo - Aspirin and Your Heart ubaldo - Iron Deficiency Anemia, Adult, Kakx-no-Hlix ubaldo - Managing Your Hypertension [facility] Forms: - Medication Reconciliation Form [facility] - Thank You Letter ubaldo - Antibiotic Education ubaldo - Prescription Opioid Use ubaldo - Patient Portal Instructions [facility] - Leadership Thank You Letter [facility] Prescriptions: - Ferrous Sulfate 325 mg (65 mg Iron) Oral Tablet - take 1 tablet ORAL route every 8 hours; 90 tablet; Refills: 0, Product [facility] Selection Permitted - Norvasc 5 mg Oral Tablet - take 1 tablet ORAL route once daily; 20 tablet; Refills: 0, Product Selection [facility] Permitted - Potassium Chloride 20 meq Oral Packet - take 1 packet ORAL route once daily 1 packet in 6 (six) ounces of water or [facility] juice; Take after meal; 20 packet; Refills: 0, Product Selection Permitted - Hydrochlorothiazide 12.5 mg Oral capsule - take 1 tablet ORAL route once daily; 20 tablet; Refills: 0, Product Selection [facility] Permitted Signatures: Dispatcher [employer] Chacho Virgen MD MD cha Prokisch, Amanda RN RN ap3 Cedric Yan RN RN rs5
--- NOTE | 2023-07-06 17:20 | ER ---
Nurse's Notes [facility] Name: Doretha Aguilar Age: 38 yrs Sex: Female : 1985 Arrival Date: 07/06/2023 Time: 15:00 Bed 20 Private MD: Diagnosis: Essential (primary) hypertension;Anemia, unspecified Presentation: 07/06 15:22 Chief complaint: Patient states: she took her blood pressure at home, and had a reading ap3 of 158/120. patient also reports a headache, which improved on ambulation. Coronavirus screen: At this time, the client does not indicate any symptoms associated with coronavirus-19. Ebola Screen: No symptoms or risks identified at this time. Initial Sepsis Screen: Does the patient meet any 2 criteria? No. Patient's initial sepsis screen is negative. Does the patient have a suspected source of infection? No. Patient's initial sepsis screen is negative. Risk Assessment: Do you want to hurt yourself or someone else? Patient reports no desire to harm self or others. Onset of symptoms was July 06, 2023. 15:22 Method Of Arrival: Ambulatory ap3 15:22 Acuity: AALIYAH 3 ap3 Triage Assessment: 15:24 General: Appears in no apparent distress. Behavior is calm, cooperative, appropriate ap3 for age. Pain: Complains of pain in face, chest, abdomen and neck Pain currently is 7 out of 10 on a pain scale. at worst was 10 out of 10 on a pain scale. Neuro: Level of Consciousness is awake, alert, obeys commands, Oriented to person, place, time, situation, Appropriate for age. Neuro: Reports headache. Cardiovascular: Patient's skin is warm and dry. Respiratory: Airway is patent Respiratory effort is even, unlabored, Respiratory pattern is regular, symmetrical. 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 Flu vaccine is not up to date. - Social history:: Smoking status: Patient denies any tobacco usage or history of. Patient uses alcohol, only on a social basis. Screenin:25 [facility] ED Fall Risk Assessment (Adult) History of falling in the last 3 months, ap3 including since admission No falls in past 3 months (0 pts). Abuse screen: Denies threats or abuse. Nutritional screening: No deficits noted. Tuberculosis screening: No symptoms or risk factors identified. Assessment: 15:30 General: Appears in no apparent distress. comfortable, Behavior is calm, cooperative. rs5 15:30 Pain: Denies pain. Neuro: Level of Consciousness is awake, alert, obeys commands, rs5 Oriented to person, place, time, situation. Cardiovascular: Heart tones S1 S2 present Patient's skin is warm and dry. Rhythm is regular. Respiratory: Airway is patent Respiratory effort is even, unlabored, Respiratory pattern is regular, symmetrical, Breath sounds are clear bilaterally. GI: Abdomen is round non-distended, Bowel sounds present X 4 quads. Abd is soft and non tender X 4 quads. : No signs and/or symptoms were reported regarding the genitourinary system. EENT: No signs and/or symptoms were reported regarding the EENT system. Derm: Skin is intact, Skin is dry, Skin is normal, Skin temperature is warm. Musculoskeletal: Range of motion: intact in all extremities. 16:20 Reassessment: No changes from previously documented assessment. rs5 17:23 Reassessment: Patient and/or family updated on plan of care and expected duration. Pain rs5 level reassessed. Patient is alert, oriented x 3, equal unlabored respirations, skin warm/dry/pink. Vital Signs: 15:22 BP 129 / 90; Pulse 78; Resp 18; Temp 97.7; Pulse Ox 100% ; Pain 7/10; ap3 15:37 BP 139 / 95; Pulse 80; Resp 18; Temp 97.8(O); Pulse Ox 99% ; rs5 16:11 BP 123 / 79; Pulse 81; Resp 18; Pulse Ox 99% on R/A; rs5 17:23 BP 130 / 82; Pulse 75; Resp 18; Pulse Ox 99% on R/A; rs5 15:22 Pain Scale: Adult ap3 [place] Coma Score: 17:15 Eye Response: spontaneous(4). Motor Response: obeys commands(6). Verbal Response: ubaldo oriented(5). Total: 15. ED Course: 15:04 Patient arrived in ED. kj1 15:08 Van, Chacho, MD is Attending Physician. ubaldo 15:23 Triage completed. ap3 15:25 XRAY Chest (1 view) In Process Unspecified. EDMS 15:25 Arm band placed on right wrist. ap3 15:30 Inserted saline lock: 20 gauge in right antecubital area, using aseptic technique. rs5 Blood collected. 15:31 Patient has correct armband on for positive identification. Bed in low position. Call rs5 light in reach. Side rails up X2. 15:37 Cedric Yan, CHRISSY is Primary Nurse. rs5 16:09 No provider procedures requiring assistance completed. rs5 17:18 Collin Cerna MD is Referral Physician. ubaldo 17:24 IV discontinued, intact, bleeding controlled, No redness/swelling at site. Pressure rs5 dressing applied. Administered Medications: 15:40 Drug: Norvasc PO 10 mg PO once Route: PO; rs5 16:20 Follow up: Response: No adverse reaction; Blood pressure is lowered rs5 15:40 Drug: Hydrochlorothiazide PO 12.5 mg PO once Route: PO; rs5 16:20 Follow up: Response: No adverse reaction; Blood pressure is lowered rs5 Medication: 16:09 VIS not applicable for this client. rs5 Outcome: 17:19 Discharge ordered by . ubaldo 17:24 Discharged to home ambulatory, rs5 17:24 Condition: stable 17:24 Discharge instructions given to patient, Instructed on discharge instructions, follow up and referral plans. Demonstrated understanding of instructions, follow-up care, 17:33 Patient left the ED. rs5 Signatures: Dispatcher [employer] [facility] Chacho Araujo MD MD cha Prokisch, Amanda RN RN ap3 Yin Adams kj1 Cedric Yan, CHRISSY RN rs5 Corrections: (The following items were deleted from the chart) 15:25 15:22 Chief complaint: Patient states: she took her blood pressure at home, and had a ap3 reading of 158/102. patient also reports a headache, which improved on ambulation ap3 16:09 15:30 Inserted saline lock: 24 gauge in left antecubital area, using aseptic technique. rs5 Blood collected. rs5
[2023-07-06 19:31] VITALS: BP 130/82; TEMP 97.8; O2SAT 99
== END ==
LOC: ER 15:00
DX: I10 Essential (primary) hypertension (principal); D64.9 Anemia, unspecified; J45.909 Unspecified asthma, uncomplicated; Z91.013 Allergy to seafood
CPT/HCPCS: 36415; 71045; 80048; 80076; 83735; 83880; 84484; 85025; 85610; 93005

== ENCOUNTER 2025-01-27 13:19 | Emergency (ER) | payer OTHER ==
[2025-01-27] MEDS ORDERED: IBUPROFEN 400 MG TAB ONE (14:07)
[2025-01-27] MEDS ORDERED: ACETAMINOPHEN 500 MG TAB ONE (14:07)
[2025-01-27 14:11] LABS: Influenza A Ag Negative; Influenza B Ag Negative; SARS-CoV-2 Antigen Rapid Res Negative (Negative)
--- NOTE | 2025-01-27 14:14 | ER ---
Nurse's Notes [facility] Name: Doretha Aguilar Age: 39 yrs Sex: Female : 1985 Arrival Date: 01/27/2025 Time: 13:19 Bed Treatment Private MD: Diagnosis: Acute tonsillitis, unspecified Presentation: 01/27 13:27 Chief complaint: Patient states: sore throat on Monday, headache, congestion, and aa5 fever. Coronavirus screen: congestion, fever. Ebola Screen: Patient denies travel to an Ebola-affected area in the 21 days before illness onset. Initial Sepsis Screen: Does the patient meet any 2 criteria? HR > 90 bpm. Does the patient have a suspected source of infection? No. Patient's initial sepsis screen is negative. Risk Assessment: Do you want to hurt yourself or someone else? Patient reports no desire to harm self or others. Onset of symptoms was January 26, 2025. 13:27 Method Of Arrival: Ambulatory aa5 13:27 Acuity: AALIYAH 4 aa5 Triage Assessment: 13:25 General: Appears comfortable, Behavior is calm, cooperative. Neuro: Level of aa5 Consciousness is awake, alert, obeys commands, Oriented to person, place, time, situation. Respiratory: Airway is patent Respiratory effort is even, unlabored, Respiratory pattern is regular, symmetrical. Derm: Skin is dry, Skin is normal, Skin temperature is warm. 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 - Infectious Disease History:: Denies. - Social history:: Smoking status: Patient reports the use of cigarette tobacco products. Vital Signs: 13:27 BP 136 / 102; Pulse 107; Resp 18 S; Temp 99(O); Pulse Ox 100% on R/A; Weight 108.86 kg aa5 (R); Height 5 ft. 11 in. (R); 13:27 Body Mass Index 33.47 (108.86 kg, 180.34 cm) aa5 ED Course: 13:21 Patient arrived in ED. im 13:22 [facility] 13:22 Rakesh Carrillo DO is Attending Physician. dr5 13:27 Arm band placed on. aa5 13:29 Triage completed. aa5 14:11 Heaven Johns, RN is Primary Nurse. kj2 Administered Medications: 14:20 Drug: Ibuprofen PO 800 mg PO once Route: PO; kj2 14:21 Follow up: Response: Medication administered at discharge. kj2 14:20 Drug: Acetaminophen PO 1000 mg PO once Route: PO; kj2 14:20 Follow up: Response: Medication administered at discharge. kj2 Outcome: 14:13 Discharge ordered by MD. dr5 14:29 Patient left the ED. kj2 Signatures: Ariella Gonzalez, RN RN aa5 Marj Daley Krystal, CHRISSY RN kj2 Malcolm Nevarez FNP-C MACHINE SORTER-Cdr5 Corrections: (The following items were deleted from the chart) 13:31 13:30 LMP 12/2024, unknown aa5 aa5
--- NOTE | 2025-01-27 14:14 | EDPHYS ---
Physician Documentation [facility] Name: Doretha Aguilar Age: 39 yrs Sex: Female : 1985 Arrival Date: 01/27/2025 Time: 13:19 Bed Treatment Private MD: ED Physician Rakesh Carrillo HPI: 01/27 18:36 This 39 yrs old Black Female presents to ER via Ambulatory with complaints of Sore dr5 Throat. 18:36 Onset: The symptoms/episode began/occurred 1 day(s) ago. Patient is a 39-year-old dr5 female with history of asthma and hypertension coming in with 1 day of sore throat. Patient reports that she is scared that she has COVID or a viral infection. Patient denies cough, congestion, fever, abdominal pain, chest pain, nausea, vomiting, diarrhea.. 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 - Infectious Disease History:: Denies. - Social history:: Smoking status: Patient reports the use of cigarette tobacco products. ROS: 18:36 Constitutional: as per hpi dr5 Exam: 18:36 Constitutional: This is a well developed, well nourished patient who is awake, alert, dr5 and in no acute distress. Head/Face: Normocephalic, atraumatic. Eyes: Pupils equal round and reactive to light, extra-ocular motions intact. Lids and lashes normal. Conjunctiva and sclera are non-icteric and not injected. Cornea within normal limits. Periorbital areas with no swelling, redness, or edema. Neck: Trachea midline, no thyromegaly or masses palpated, and no cervical lymphadenopathy. Supple, full range of motion without nuchal rigidity, or vertebral point tenderness. No Meningismus. Chest/axilla: Normal chest wall appearance and motion. Nontender with no deformity. No lesions are appreciated. Cardiovascular: Regular rate and rhythm with a normal S1 and S2. Normal PMI, no JVD. No pulse deficits. Respiratory: Lungs have equal breath sounds bilaterally, clear to auscultation. No rales, rhonchi or wheezes noted. No increased work of breathing, no retractions or nasal flaring. Back: No spinal tenderness. No costovertebral tenderness. Full range of motion. Skin: Warm, dry with normal turgor. Normal color with no rashes, no lesions, and no evidence of cellulitis. MS/ Extremity: Pulses equal, no cyanosis. Neurovascular intact. Full, normal range of motion. Neuro: Awake and alert, GCS 15, oriented to person, place, time, and situation. Cranial nerves II-XII grossly intact. Motor strength 5/5 in all extremities. Sensory grossly intact. Cerebellar exam normal. Normal gait. 18:36 ENT: External ear(s): are unremarkable, Ear canal(s): are normal, TM's: are normal, no acute changes, Nose: is normal, Posterior pharynx: is normal, no acute changes, Airway: normal, no evidence of obstruction, Tonsils: bilaterally enlarged, no exudate, Vital Signs: 13:27 BP 136 / 102; Pulse 107; Resp 18 S; Temp 99(O); Pulse Ox 100% on R/A; Weight 108.86 kg aa5 (R); Height 5 ft. 11 in. (R); 13:27 Body Mass Index 33.47 (108.86 kg, 180.34 cm) aa5 MDM: 13:22 Medical Screening Exam initiated dr5 18:36 Differential diagnosis: viral Infection, bacterial infection, Strep, COVID, flu. Data dr5 reviewed: vital signs, nurses notes, lab test result(s), Flu: negative Strep negative, COVID-negative. Consideration of Admission/Observation Escalation of care including admission/observation considered. Admission considered patient was hypoxic requiring supplemental oxygen. I considered the following discharge prescriptions or medication management in the emergency department I discussed and recommended Over The Counter medications, Medications were administered in the Emergency Department. See MAR. Care significantly affected by the following chronic conditions: Hypertension, Asthma. Care significantly affected by the following Social Determinants of Health: Poor access to healthcare and/or lack of insurance, Poor access to transportation, Problems related to employment. Counseling: I had a detailed discussion with the patient and/or guardian regarding the historical points, exam findings, and any diagnostic results supporting the discharge/admit diagnosis, the presence of at least one elevated blood pressure reading (>120/80) during this emergency department visit, lab results, the need for outpatient follow up, for definitive care, a family practitioner, to return to the emergency department if symptoms worsen or persist or if there are any questions or concerns that arise at home. Medication response: Special discussion: I have referred the patient to see his PCP for further evaluation of high blood pressure. I discussed with the patient/guardian in detail that at this point there is no indication for admission to the hospital. It is understood, however, that if the symptoms persist or worsen the patient needs to return immediately for re-evaluation. Based on the history and exam findings, there is no indication for further emergent testing or inpatient evaluation. I discussed with the patient/guardian the need to see the primary care provider for further evaluation of the symptoms. ED course: Strep and viral swabs negative. I Profen and Tylenol given for mild headache. Patient reports he so much better. All question answered. Increase hydration. Alternate Tylenol Motrin as needed for pain. Strict ER precautions given. 01/27 13:42 Order name: Group A Streptococcus Rapid; Complete Time: 14:04 [facility] 01/27 13:42 Order name: COVID-19 Ag + Flu A+B Ag; Complete Time: 14:12 [facility] 01/27 14:05 Order name: Throat Culture EDMS Administered Medications: 14:20 Drug: Ibuprofen PO 800 mg PO once Route: PO; kj2 14:21 Follow up: Response: Medication administered at discharge. kj2 14:20 Drug: Acetaminophen PO 1000 mg PO once Route: PO; kj2 14:20 Follow up: Response: Medication administered at discharge. kj2 Disposition: 20:03 I was immediately available on-site in the Emergency Department for consultation in the ms3 care of the patient. Disposition Summary: 01/27/25 14:13 Discharge Ordered Notes: Location: Home dr5 Condition: Stable dr5 Diagnosis - Acute tonsillitis, unspecified dr5 Followup: dr5 - With: Emergency Department - When: As needed - Reason: Worsening of condition Followup: dr5 - With: Private Physician - When: 1 - 2 days - Reason: Recheck today's complaints, Continuance of care, Re-evaluation by your physician Discharge Instructions: - Discharge Summary Sheet dr5 - Tonsillitis dr5 Forms: - Work release form kj2 - Medication Reconciliation Form dr5 - Antibiotic Education dr5 - Patient Portal Instructions dr5 - Leadership Thank You Letter dr5 Prescriptions: - Amoxicillin 500 mg Oral capsule - take 1 capsule ORAL route every 12 hours for 7 days; 14 tablet; Refills: 0, dr5 Product Selection Permitted Signatures: Dispatcher [employer] Ariella Hagen, RN RN aa5 Rakesh Carrillo, DO ms3 Heaven Johns, RN RN kj2 Malcolm Nevarez, FOUNDRY SUPERINTENDANT-C FOUNDRY SUPERINTENDANT-Cdr5
[2025-01-27 19:53] VITALS: BP 136/102; TEMP 99; O2SAT 100
== END 2025-01-27 14:29 | disposition home or self-care (01) ==
LOC: ER 13:19
DX: J03.90 Acute tonsillitis, unspecified (principal); Z11.52 Encounter for screening for COVID-19; Z72.0 Tobacco use
CPT/HCPCS: 36415; 87070; 87428; 99282

== ENCOUNTER 2025-02-03 20:16 | Emergency (ER) | payer OTHER ==
[2025-02-03 21:26] LABS: Absolute Lymphocytes (CBC) 1.7 K/uL (0.7-4.9); Hematocrit 31.9 % (36.0-45.0); Hemoglobin 10.2 g/dL (12.0-15.0); MCH 24.4 pg (27.0-35.0); MCHC 32.0 g/dL (32.0-36.0); MCV 76.2 fL (80-100); MPV 7.8 fL (7.6-11.3); Nucleated RBC Absolute Count 0.0 (0-0); Nucleated Red Blood Cells % 0.0 % (0-0); RBC Red Blood Cell Count 4.19 M/uL (3.86-4.86); White Blood Count 3.90 thou/uL (4.3-10.9)
--- NOTE | 2025-02-03 21:42 | RAD REPORT ---
EXAMINATION: ONE VIEW CHEST XR CLINICAL INDICATION: Female, 39 years old.,DYSPNEA TECHNIQUE: Frontal chest projection is submitted. Examination is limited by patient positioning and t echnique. COMPARISON: 08/10/2023 FINDINGS: The lungs are well inflated and clear. No pneumothorax or sizable effusion. The heart is normal in s ize. Mediastinal contours are unremarkable. IMPRESSION: No acute intrathoracic abnormalities.
[2025-02-03 21:45] LABS: ALT/SGPT 22.0 U/L (13-56); AST/SGOT 15.0 U/L (15-37); Albumin 3.7 g/dL (3.4-5.0); Albumin/Globulin Ratio 1.0 (1.1-1.8); Alkaline Phosphatase 46.0 U/L (45-117); Anion Gap 7.0 mEq/L (5.0-15.0); BUN Blood Urea Nitrogen 6.0 mg/dL (7-18); Globulin 3.8 g/dL (2.3-3.5); Glucose Level 101.0 mg/dL (74-106); Lipase 21.0 U/L (13-75); Potassium 4.0 mEq/L (3.5-5.1)
--- NOTE | 2025-02-03 22:06 | EDPHYS ---
Physician Documentation [facility] Name: Doretha Aguilar Age: 39 yrs Sex: Female : 1985 Arrival Date: 02/03/2025 Time: 20:16 Bed 19 Private MD: UMAIR Physician Chacho Araujo HPI: 02/03 23:16 This 39 yrs old Black Female presents to ER via Ambulatory with complaints of High kb Blood Pressure, Dizziness. 23:16 Patient is a 39-year-old female who presents for right upper quadrant pain, shortness kb of breath, near syncope, headache and high blood pressure. Patient states she woke up with a headache, checked her blood pressure and it is elevated so she took her amlodipine. States she does not take her amlodipine on a daily basis because she does not want to become dependent on it. States she took Tylenol just prior to arrival for a headache and when the stomach acid digested it she had shortness of breath, near syncope and right upper quadrant pain. Patient states she believes her liver is having a heart attack. States she had her gallbladder removed so she knows it is not a gallbladder attack. Reports pain has resolved at this time.. 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 - Infectious Disease History:: Denies. - Social history:: Smoking status: Patient reports the use of cigarette tobacco products, smokes one-half pack cigarettes per day, Patient/guardian denies using alcohol, street drugs. ROS: 23:16 Constitutional: As per HPI kb Exam: 22:05 Constitutional: This is a well developed, well nourished patient who is awake, alert, kb and in no acute distress. Head/Face: Normocephalic, atraumatic. ENT: Moist Mucous membranes Cardiovascular: Regular rate Respiratory: Respirations even and unlabored. No increased work of breathing. Talking in full sentences Abdomen/GI: Soft, non-tender. No distention Skin: Warm, dry with normal turgor. Normal color. MS/ Extremity: Pulses equal, no cyanosis. Neurovascular intact. Full, normal range of motion. Neuro: Awake and alert, GCS 15, oriented to person, place, time, and situation. 22:05 ECG was reviewed by the Attending Physician. Vital Signs: 20:23 BP 144 / 95; Pulse 92; Resp 17 S; Temp 97.8(TE); Pulse Ox 100% on R/A; Weight 107.5 kg lg3 (R); Height 5 ft. 11 in. (R); 21:00 BP 149 / 90; Pulse 86; Resp 18; Pulse Ox 100% on R/A; kb4 21:48 BP 124 / 75; Pulse 72; Resp 18; Pulse Ox 100% on R/A; kb4 22:24 BP 116 / 77; Pulse 75; Resp 18; Pulse Ox 100% on R/A; kb4 20:23 Body Mass Index 33.05 (107.50 kg, 180.34 cm) lg3 MDM: 20:22 Medical Screening Exam initiated kb 23:15 Differential diagnosis: hypertensive crisis, Malignant HTN, pancreatitis, abnormal kb liver enzymes, dehydration. Data reviewed: vital signs, nurses notes. Test considered but Not performed: CT: CT abdomen considered but patient has no abdominal tenderness, labs reassuring. Counseling: I had a detailed discussion with the patient and/or guardian regarding the historical points, exam findings, and any diagnostic results supporting the discharge/admit diagnosis, lab results, radiology results, the need for outpatient follow up, a family practitioner, to return to the emergency department if symptoms worsen or persist or if there are any questions or concerns that arise at home. 02/03 20:28 Order name: CBC with Diff; Complete Time: 21:37 kb 02/03 20:28 Order name: CMP; Complete Time: 21:59 kb 02/03 20:28 Order name: Lipase; Complete Time: 21:59 kb 02/03 20:28 Order name: Chest Single View XRAY; Complete Time: 21:59 kb 02/03 20:28 Order name: IV Saline Lock; Complete Time: 21:06 kb 02/03 20:28 Order name: Labs collected and sent; Complete Time: 21:46 kb 02/03 20:28 Order name: EKG - Nurse/Tech; Complete Time: 21:46 kb EC:05 Rate is 78 beats/min. Rhythm is regular. QRS Ramona is Normal. WI interval is normal at kb 148 msec. QRS interval is normal at 74 msec. QT interval is normal at 424 msec. Administered Medications: 22:46 Drug: Acetaminophen PO 650 mg PO once Route: PO; kb4 22:46 Follow up: Response: No adverse reaction kb4 Disposition: 02/04 13:32 Co-signature as Attending Physician, Chacho Araujo MD I agree with the assessment and ubaldo plan of care. Disposition Summary: 02/03/25 22:05 Discharge Ordered Notes: Location: Home kb Condition: Stable kb Diagnosis - Upper abdominal pain, unspecified kb Followup: kb - With: Emergency Department - When: As needed - Reason: Worsening of condition Followup: kb - With: Private Physician - When: 2 - 3 days - Reason: Recheck today's complaints, Continuance of care, Re-evaluation by your physician Discharge Instructions: - Discharge Summary Sheet kb - Abdominal Pain, Adult, [id number] kb Forms: - Medication Reconciliation Form kb - Antibiotic Education kb - Prescription Opioid Use kb - Patient Portal Instructions kb - Leadership Thank You Letter kb Signatures: Dispatcher [employer] EDMS Aster Adams, ANIMAL WARDEN-C ANIMAL WARDEN-Chacho Singh MD MD cha Able, Lacie, RN RN lg3 An Gann, RN RN kb4 Corrections: (The following items were deleted from the chart) 02/03 20:29 20:29 CBC+H.LAB.BRZ ordered. EDMS EDMS 20:29 20:29 COMPREHENSIVE METABOLIC PANEL+C.LAB.BRZ ordered. EDMS EDMS 20:29 20:29 LIPASE+C.LAB.BRZ ordered. EDMS EDMS 20:29 20:29 Chest Single View+RAD.RAD.BRZ ordered. EDMS EDMS
--- NOTE | 2025-02-03 22:06 | ER ---
Nurse's Notes [facility] Name: Doretha Aguilar Age: 39 yrs Sex: Female : 1985 Arrival Date: 02/03/2025 Time: 20:16 Bed 19 Private MD: Diagnosis: Upper abdominal pain, unspecified Presentation: 02/03 20:23 Chief complaint: Patient states: right sided abdominal pain after taking tylenol. lg3 Coronavirus screen: Client denies travel out of the [place] in the last 14 days. At this time, the client does not indicate any symptoms associated with coronavirus-19. Ebola Screen: No symptoms or risks identified at this time. Initial Sepsis Screen: Does the patient meet any 2 criteria? No. Patient's initial sepsis screen is negative. Does the patient have a suspected source of infection? No. Patient's initial sepsis screen is negative. Risk Assessment: Do you want to hurt yourself or someone else? Patient reports no desire to harm self or others. Onset of symptoms was February 03, 2025. 20:23 Method Of Arrival: Ambulatory lg3 20:23 Acuity: AALIYAH 3 lg3 Triage Assessment: 20:26 General: Appears in no apparent distress. comfortable, Behavior is calm, cooperative. lg3 Pain: Complains of pain in right upper quadrant. EENT: No deficits noted. No signs and/or symptoms were reported regarding the EENT system. Neuro: No deficits noted. Will Agitation-Sedation Scale (RASS): 0 - Alert and Calm Level of Consciousness is awake, alert, obeys commands, Oriented to person, place, time, situation. Cardiovascular: No deficits noted. Denies chest pain, shortness of breath, Capillary refill < 3 seconds Clubbing of nail beds is absent JVD is absent Patient's skin is warm and dry. Respiratory: No deficits noted. Airway is patent Respiratory effort is even, unlabored, Respiratory pattern is regular, symmetrical. GI: Abdomen is round non-distended, obese, Reports upper abdominal pain. : No signs and/or symptoms were reported regarding the genitourinary system. Derm: No signs and/or symptoms reported regarding the dermatologic system. Musculoskeletal: No deficits noted. No signs and/or symptoms reported regarding the musculoskeletal system. Circulation, motion, and sensation intact. Range of motion: intact in all extremities. POLE PEELER: 20:26 LMP 02/01/2025, unknown lg3 Historical: - Allergies: 20:26 SHELLFISH; lg3 - Home Meds: 20:26 amlodipine 5 mg oral tablet [Active]; lg3 - PMHx: 20:26 Asthma; Hypertensive disorder; lg3 - PSHx: 20:26 Cholecystectomy; lg3 - Immunization history:: Adult Immunizations up to date. - Infectious Disease History:: Denies. - Social history:: Smoking status: Patient reports the use of cigarette tobacco products, smokes one-half pack cigarettes per day, Patient/guardian denies using alcohol, street drugs. Screenin:25 [facility] ED Fall Risk Assessment (Adult) History of falling in the last 3 months, kb4 including since admission No falls in past 3 months (0 pts) Confusion or Disorientation No (0 pts) Intoxicated or Sedated No (0 pts) Impaired Gait No (0 pts) Mobility Assist Device Used No (0 pt) Altered Elimination No (0 pt) Score/Fall Risk Level 0 - 2 = Low Risk. Abuse screen: Denies threats or abuse. Denies injuries from another. Nutritional screening: No deficits noted. Tuberculosis screening: No symptoms or risk factors identified. Assessment: 21:10 General: Appears in no apparent distress. comfortable, Behavior is calm, cooperative. kb4 Pain: Denies pain. Neuro: Level of Consciousness is awake, alert, Oriented to person, place, time. Cardiovascular: Heart tones S1 S2. Respiratory: Airway is patent Respiratory effort is even, unlabored, Respiratory pattern is regular, symmetrical. GI: Abdomen is flat, non-distended, stated RUQ pain at 3pm, denies pain now. : No signs and/or symptoms were reported regarding the genitourinary system. EENT: No signs and/or symptoms were reported regarding the EENT system. Derm: No signs and/or symptoms reported regarding the dermatologic system. 22:24 Reassessment: Patient and/or family updated on plan of care and expected duration. Pain kb4 level reassessed. Patient is alert, oriented x 3, equal unlabored respirations, skin warm/dry/pink. Patient denies pain at this time. Patient states feeling better. Patient states symptoms have improved. Vital Signs: 20:23 BP 144 / 95; Pulse 92; Resp 17 S; Temp 97.8(TE); Pulse Ox 100% on R/A; Weight 107.5 kg lg3 (R); Height 5 ft. 11 in. (R); 21:00 BP 149 / 90; Pulse 86; Resp 18; Pulse Ox 100% on R/A; kb4 21:48 BP 124 / 75; Pulse 72; Resp 18; Pulse Ox 100% on R/A; kb4 22:24 BP 116 / 77; Pulse 75; Resp 18; Pulse Ox 100% on R/A; kb4 20:23 Body Mass Index 33.05 (107.50 kg, 180.34 cm) lg3 ED Course: 20:20 Patient arrived in ED. gm2 20:21 [facility] kb 20:21 Chacho Araujo MD is Attending Physician. kb 20:26 Triage completed. lg3 20:26 Arm band placed on right wrist. lg3 20:50 An Gann, CHRISSY is Primary Nurse. kb4 21:23 Chest Single View XRAY In Process Unspecified. EDMS 22:25 Patient has correct armband on for positive identification. kb4 22:25 No provider procedures requiring assistance completed. Inserted saline lock: 20 gauge kb4 in left antecubital area, using aseptic technique. Blood collected. Flushed with 10 mL NS. 22:45 IV discontinued, intact, bleeding controlled, No redness/swelling at site. Pressure kb4 dressing applied. Administered Medications: 22:46 Drug: Acetaminophen PO 650 mg PO once Route: PO; kb4 22:46 Follow up: Response: No adverse reaction kb4 Medication: 22:25 VIS not applicable for this client. kb4 Outcome: 22:05 Discharge ordered by . kb 22:45 Discharged to home ambulatory, kb4 22:45 Condition: good 22:45 Discharge instructions given to patient, Instructed on discharge instructions, Demonstrated understanding of instructions, 22:46 Patient left the ED. kb4 Signatures: Dispatcher [employer] EDMS Aster Adams FNP-C FNP-Jacy Norris, RN RN lg3 Yee Garza 2 An Gann, RN RN kb4
[2025-02-03] MEDS ORDERED: ACETAMINOPHEN 325 MG TABLET ONE (22:29)
[2025-02-04 03:04] VITALS: TEMP 97.8; O2SAT 100
[2025-02-04 03:15] VITALS: BP 116/77
== END 2025-02-03 22:46 | disposition home or self-care (01) ==
LOC: ER 20:16
DX: R10.11 Right upper quadrant pain (principal); I10 Essential (primary) hypertension; R55 Syncope and collapse; F17.210 Nicotine dependence, cigarettes, uncomplicated
CPT/HCPCS: 36415; 71045; 80053; 83690; 85025; 93005; 99284